=== PATIENT | female | born 1940 | race Caucasian/White ===

== ENCOUNTER → 2023-07-19 11:08 | Outpatient (REF) | payer OTHER, SELFPAY | LOC: HWRAD 11:08 | PROVIDERS: ATTENDING PHYSICIAN Physician Assistant Medical | DX: M79.89 Other specified soft tissue disorders (principal) | CPT/HCPCS: 73140 ==

== ENCOUNTER → 2024-02-27 10:03 | Outpatient (REF) | payer OTHER, SELFPAY | LOC: HWRCS 10:03 | PROVIDERS: ATTENDING PHYSICIAN Internal Medicine Cardiovascular Disease; FAMILY PHYSICIAN Physician Assistant Medical | DX: R94.31 Abnormal electrocardiogram [ECG] [EKG] (principal); R01.1 Cardiac murmur, unspecified | CPT/HCPCS: 93306 ==

== ENCOUNTER → 2024-04-16 09:26 | Outpatient (REF) | payer OTHER, SELFPAY | LOC: HWRAD 09:26 | PROVIDERS: ATTENDING PHYSICIAN Internal Medicine Critical Care Medicine | DX: J84.9 Interstitial pulmonary disease, unspecified (principal) | CPT/HCPCS: 71046 ==

== ENCOUNTER → 2024-05-07 09:19 | Outpatient (REF) | payer OTHER, SELFPAY ==
[2024-05-07 13:05] LABS: Hematocrit 32.8 % (37.0-47.0); Hemoglobin 10.9 g/dL (12.0-16.0); Mean Corp Hgb Conc. 33.2 g/dL (33.0-37.0); Mean Corpuscular Hgb 29.8 pg (27.0-31.0); Mean Corpuscular Volume 89.6 fL (81.0-99.0); Mean Platelet Volume 11.7 fL (7.4-10.4); Platelet Count 464 10^3/uL (130-400); Red Blood Cell Count 3.66 10^6/uL (4.20-5.40); Red Cell Dist. Width 17.7 % (11.5-14.5); White Blood Cell Count 7.6 10^3/uL (4.8-10.8)
[2024-05-07 14:25] LABS: % Basophils 2.2 % (0-2); % Eosinophils 8.4 % (0-6); % Immature Granulocytes 0.4 % (0-0.5); % Lymphocytes 10.4 % (20.5-51.1); % Monocytes 11.4 % (1.7-9.3); % Neutrophils 67.2 % (42.2-75.2); Absolute Basophils 0.2 10^3/uL (0-0.2); Absolute Eosinophils 0.6 10^3/uL (0-0.7); Absolute Lymphocytes 0.8 10^3/uL (1.2-3.4); Absolute Monocytes 0.9 10^3/uL (0.1-0.6); Absolute Neutrophils 5.1 10^3/uL (1.4-6.5); Nucleated Red Blood Cells % 0.4 %
== END ==
LOC: HWLAB 09:19
PROVIDERS: ATTENDING PHYSICIAN Internal Medicine Critical Care Medicine; FAMILY PHYSICIAN Physician Assistant Medical
DX: R06.02 Shortness of breath (principal)
CPT/HCPCS: 36415; 85025

== ENCOUNTER → 2024-06-14 17:01 | Outpatient (REF) | payer OTHER, SELFPAY | LOC: RAD 17:01 | PROVIDERS: ATTENDING PHYSICIAN Physician Assistant Medical | DX: R60.0 Localized edema (principal) | CPT/HCPCS: 93971 ==

== ENCOUNTER → 2024-06-26 10:37 | Outpatient (REF) | payer OTHER, SELFPAY | LOC: HWRAD 10:37 | PROVIDERS: ATTENDING PHYSICIAN Internal Medicine Critical Care Medicine; FAMILY PHYSICIAN Physician Assistant Medical | DX: R06.02 Shortness of breath (principal); R09.89 Other specified symptoms and signs involving the circulatory and respiratory systems | CPT/HCPCS: 71046 ==

== ENCOUNTER 2024-06-29 06:45 | Inpatient (IN) | payer OTHER, SELFPAY ==
[2024-06-29] VITALS (19 sets, daily range): BP systolic 106–161; BP diastolic 36–70; PULSE 2; BMI 29.6; BMI 29.1
--- NOTE | 2024-06-29 04:56 | EDRN ---
Pt was placed on 4 lpm O2 initially, Dr Nazario requested room air pulse ox - pulse dropped to 85%. reapplied 4 lpm O2
--- NOTE | 2024-06-29 05:07 | ED.GENMED ---
History of Present Illness
General
Chief Complaint: Breathing Problem
Source: patient, records and ambulance crew
Exam Limitations: none
Time Seen by Provider: 06/29/24 04:50
Nursing documentation reviewed up to this point in time: agreed with
History of Present Illness
History of Present Illness:
83-year-old female with a past medical history of hypertension, interstitial lung disease (follows with Dr. Aguiar pulmonology) who presents to the emergency room via EMS from home for evaluation of shortness of breath. Patient reports that she
has had worsening shortness of breath over the past 5 days. She says that Monday she went to see commissioner of officials for symptoms and was prescribed prednisone but she has been taking this and symptoms are still worsening. She does have mild cough
occasionally productive of clear sputum. She denies any chest pain. She denies any fever. She has had some swelling in her legs which is new. She denies any other complaints. Per EMS on their arrival she was hypoxic 70s to 80s requiring
nonrebreather. She was given a DuoNeb on the way to the hospital.
Past History
Past History
ED Past Medical History: HTN and Other (anemia, thrombocytosis, diverticulosis)
ED Past Surgical History: Gynecological
Social History
Tobacco: Non-smoker
Alcohol: None
Drug: None
Personal:
Living: with family
Employment: Retired
Family History
Family History: Negative Early CAD
Review of Systems
Review of Systems
All Other Systems: ROS reviewed and negative except as documented in HPI and ROS
Constitutional: Denies fever or chills
Respiratory: Reports cough and trouble breathing
Cardiac: Denies chest pain or palpitations
ABD/GI: Denies abdominal pain, nausea or vomiting
: Denies flank pain
Musculoskeletal: Reports edema; Denies neck pain or back pain
Neurological: Denies dizzy or headache
Phy Exam
Physical Exam
Physical Exam:
General: Awake, alert, oriented x3; in moderate respiratory distress
Head: Normocephalic, atraumatic
Eyes: Conjunctiva normal
Throat: Airway intact, handling secretions
Neck: Trachea midline, no JVD noted
Lungs: Patient is sitting upright, tachypneic, speaking in short sentences; she is breathing with a respiratory rate of 34 and is hypoxic to 85% on room air; she has bilateral rales throughout all lung garzon on lung auscultation
Heart: Tachycardia with regular rhythm, no murmurs, gallops, or rubs
Abd: Soft, non distended, nontender
Neuro: No gross deficits
Extremities: +2 pitting edema in the legs, warm and well-perfused
Scores
Heart Failure Risk
Heart Failure Risk Score: Not Applicable
Heart Score for Chest Pain Patients
STEMI patient?: Not applicable
Withdrawal Assessment of Alcohol
Withdrawal Assessment Completed?: Not applicable
Course
Orders/Labs/Results
Orders:
Orders
06/29/24 04:52
Electrocardiogram (*1) Urgent
Reason for Study: Shortness of Breath
EKG- Treatment ONCE
06/29/24 04:55
COVID-19 Antigen Urgent
Source: Nasal Swab
Complete Blood Count/With Diff Urgent
Comprehensive Metabolic Panel Urgent
NT-proBNP Urgent
Troponin I Urgent
Influenza A+B Rapid Molecular Urgent
UGO Source: Nasal Swab
Specimen Description:
06/29/24 05:06
Bipap [RESP] Urgent
Patient to use own unit?: No
Inspiratory Pressure (cm H2O): 12
Expiratory Pressure (cm H2O): 5
06/29/24 05:07
Ipratropium/Albuterol Sulfate [Duoneb] 3 ml INH R NOW STA
MethylPREDNISolone PF [Solu-Medrol Pf] 125 mg IV NOW STA
CR Chest Portable - 1 View Urgent
Comment:
Reason For Exam: sob
Reason Study Needs to be Portable: Unable to Transport
06/29/24 05:21
Furosemide [Lasix] 40 mg IV NOW STA
06/29/24 05:23
CefTRIAXone [Rocephin] 1,000 mg IV NOW STA
Doxycycline Hyclate [Vibramycin] 100 mg 0.9% Sodium Chloride 250 ml [Nss] 250 ml IV NOW
06/29/24 05:26
Oseltamivir Phosphate [Tamiflu] 75 mg PO NOW STA
Sterile Water [Sterile Water For Injection] 10 ml .ROUTE .[facility]
Abnormal Lab Results
06/29/24
04:55
WBC 14.2 H 10^3/uL
(4.8-10.8)
RBC 2.96 L 10^6/uL
(4.20-5.40)
Hgb 8.6 L g/dL
(12.0-16.0)
Hct 24.9 L %
(37.0-47.0)
RDW 17.7 H %
(11.5-14.5)
Plt Count 432 H 10^3/uL
(130-400)
MPV 11.3 H fL
(7.4-10.4)
06/29/24 04:55
Vital Signs
Initial and Last Documented VS:
Initial Vital Signs
Temp Pulse Resp BP
37.1 C 107 34 160/57
06/29/24 04:48 06/29/24 04:48 06/29/24 04:48 06/29/24 04:48
Last Documented Vital Signs
Temp Pulse Resp BP Pulse Ox
37.2 C 110 28 160/57 96
06/29/24 04:55 06/29/24 05:00 06/29/24 05:00 06/29/24 04:48 06/29/24 05:00
MDM/Problems Addressed
Differential Diagnosis Includes:
ILD, bronchitis, pneumonia, CHF
MDM/Problems Addressed:
83-year-old female presents with worsening shortness of breath x 5 days despite outpatient steroids. Hypoxic, tachypneic, tachycardic, mildly hypertensive. Physical exam as above. Main differentials would be interstitial lung disease versus CHF
based on clinical picture. She did have some subjective improvement with DuoNeb. Will place on BiPAP to stabilize respiratory status. Plan to place an IV check labs including a CBC and a CMP, proBNP and troponin. Swab for COVID and flu. Check
EKG. Check stat portable chest x-ray. Will treat with steroids. Would likely give dose of Lasix as well pending chemistry. Plan for admission pending initial evaluation and resuscitation.
Initial labs reviewed: CBC shows leukocytosis to 14.2�unclear acute clinical significance in the setting of recent steroid use. Chest x-ray reviewed by me and compared to x-ray from 3 days ago shows increased interstitial infiltrates�could be
interstitial pneumonia versus increased interstitial lung disease versus CHF. She was noted to have positive swab for influenza A�this could be viral pneumonia. Although she is almost a week into her illness given the acuity of illness we will
cover with Tamiflu. Will treat with steroids and nebs for possible interstitial lung disease component of her symptoms. Will give a dose of Lasix given increased edema. Hold on antibiotics at this point with no fever/hypotension and more likely
alternative causes for her abnormal x-ray and hypoxia. Will admit to the hospitalist for continued management. Case discussed with hospitalist.
Patient showed me a note from her commissioner of officials�apparently she is also had increased weight gain by about 8 pounds on top of her no edema and there was a question of some pulmonary edema outpatient x-ray; all this supports continued treatment with
diuretic in addition to above.
Chronic conditions affecting care:
Interstitial lung disease
Acute Exacerbation and/or Progression of Chronic Illness:
Acutely hypertensive
Acute Exacerbation and/or Progression of Chronic Illness: HTN
*Radiology
Radiology exam reviewed: preliminary read by ED provider
*Pulse Oximetry
Patient hypoxic: yes
*EKG
Interpreted by ED Provider?: Yes
Heart Rate: 103
Rate: tachycardiac
Rhythm: sinus and sinus tachycardia
[place]: normal axis
Interval: normal interval
QRS Pattern: normal QRS
Ischemia: non-specific ST changes
*Critical Care Note
Total Time (30-74mins, 75-104mins- exclusive of procedures): 30
comment:
Critical care statement: A total of 30 minutes of critical care time was provided for this patient. This includes management of unstable vital signs, evaluation of the patient at bedside, frequent reassessment, discussion with
consultants/hospitalist, and review of pertinent medical records. This time was separate from time utilized to perform any aforementioned documented procedures
Data Reviewed
Source: patient, records and ambulance crew
Patient Management
Discussion with other providers: Hospitalist (Discussed with hospitalist)
Escalation/DeEscalation of care consider admission/obs:
Admission indicated
ED Attending Note
-
Portions of this chart may have been created with voice recognition software.� Occasional wrong word or��sound alike� substitutions may have occurred due to the inherent limitations of voice recognition software.
Discharge Plan
Departure
Patient Disposition: Admit
Date of Disposition: 06/29/24
Time of Disposition: 05:30
Admit to doctor: Lucia
Presentation/result/management discussed w/ accepting MD/DO: Hospitalist
Discharge Problem:
Acute hypoxemic respiratory failure, Interstitial lung disease, CHF (congestive heart failure), Influenza A
Prescriptions:
No Action
cholecalciferol (vitamin D3) 1,000 UNITS tablet
1,000 units PO DAILY
calcium-vitamin D3-vitamin K 1 EACH tablet,chewable
1 ea PO DAILY
multivitamin with folic acid [Tab-A-Levi] 1 TABLET tablet
1 tab PO DAILY
albuterol sulfate 1 PUFF HFA aerosol inhaler
1 puff inhalation R Q4HPRN PRN (Reason: sob) 30 Days Qty: 1 0RF
prednisone 20 mg Tablet
20 mg PO DAILY
spironolactone
1 tab PO DAILY
Patient Comments:
this medication is new - pt does not know how much she takes
Interventions
Interventions:
*Risk Screen - Suicide Last Done: 06/29/24 04:48
*General Assessment Last Done: 06/29/24 04:48
*Neglect/Abuse Screening Last Done: 06/29/24 04:48
ED- Fall Risk Assessment Last Done: 06/29/24 04:58
*ED COVID-19 Vaccine History Last Done: 06/29/24 04:48
ED- Cardiac Assessment Last Done: 06/29/24 05:05
ED- Pulmonary Assessment Last Done: 06/29/24 05:05
Discharge Date and Time
Print Language: ROMANIAN
[2024-06-29] MEDS: DUONEB 3 ML INH (05:14)
[2024-06-29] MEDS: SOLU-MEDROL PF 125 MG IV (05:14)
[2024-06-29 05:17] LABS: Hematocrit 24.9 % (37.0-47.0); Hemoglobin 8.6 g/dL (12.0-16.0); Mean Corp Hgb Conc. 34.5 g/dL (33.0-37.0); Mean Corpuscular Hgb 29.1 pg (27.0-31.0); Mean Corpuscular Volume 84.1 fL (81.0-99.0); Mean Platelet Volume 11.3 fL (7.4-10.4); Platelet Count 432 10^3/uL (130-400); Red Blood Cell Count 2.96 10^6/uL (4.20-5.40); Red Cell Dist. Width 17.7 % (11.5-14.5); White Blood Cell Count 14.2 10^3/uL (4.8-10.8)
[2024-06-29 05:20] LABS: COVID-19 Antigen Negative (Negative)
[2024-06-29] MEDS: LASIX 40 MG IV ×2 (05:31→16:43)
[2024-06-29] MEDS: TAMIFLU 75 MG PO ×2 (05:31→19:50)
[2024-06-29 05:34] LABS: NT-proBNP 7340 pg/ml; Troponin I 0.017 ng/ml
--- NOTE | 2024-06-29 06:01 | HPS.HSE ---
Family Physician
-
Family Physician: BETZY CUMMINGS PA-C
Chief Complaint
-
Shortness of breath
History of Present Illness
This 83-year-old female was a past medical history of interstitial lung disease not currently on home O2, history of CHF with preserved EF presents to the emergency department with worsening shortness of breath over the last 6 days.
Patient and spouse reported that there was a family gathering about a week ago prior to the patient getting sick. The following day the patient started having more of a runny nose (she has chronic rhinorrhea). She felt more short of breath and was
seen by our physician/[employer]. A chest x-ray at that time was concerning for increased pulmonary edema with some peribronchial cuffing with concern for bronchiolitis versus edema. She also had increased ankle edema as well as 8 pound weight
gain over 2 months. There was a recommendation that Lasix and if there was no improvement she she will be started on prednisone. Ultimately about 3 days ago the patient said that she started taking prednisone. She took 60 mg (was supposed to have
taken 20 mg) on Monday and then went down to the 20 mg last 2 days. On she started taking Lasix 20 mg IV twice daily. She was continued on spironolactone. Patient reports no significant improvement in respiratory symptoms. She denied
any increased urine output. She had worsening shortness of breath on Monday and EMS was called. Initial pulse ox was 88% on room air with severe increased work of breathing. EMS placed her on nonrebreather are symptoms with subjectively improved.
In the emergency department she was afebrile with a temp of 98.9, blood pressure was 160/60 with a pulse of 110 respiratory rate was 28-30. She was satting around 96% on 5 L and on BiPAP 8/5. ECG shows sinus tachycardia at 103. Troponin was
negative. BNP was elevated at 7300. Chest x-ray shows interstitial opacities and groundglass opacities is throughout the lung garzon without focal consolidation consistent with interstitial pneumonia, worsening ILD versus pulmonary edema.
Influenza test was positive. COVID test was negative. CBC shows a white count of 14,000 with hemoglobin and platelet counts unchanged from prior. Electrolytes are pending.
Medical History
Past Medical History
Past Medical History: Reports HTN and Other (Diverticulosis)
Additional Past Medical History:
Interstitial lung disease
Past Surgical History: Reports Appendectomy, and Gynocological (Total hysterectomy)
Social History
Tobacco: Non-smoker
Alcohol: None
Drug: None
Personal:
Living: With Family
Employment: Retired
Family History
Family History: Not pertinent
Allergies / Home Medications
Allergies reflects when Allergies were last updated in [employer].
Home Medications with original date entered in [employer]
Allergy/Medication List:
Allergies
Allergy/AdvReac Type Severity Reaction Status Date / Time
aspirin Allergy Unknown Verified 06/29/24 04:47
clarithromycin [From Biaxin] Allergy Unknown Verified 06/29/24 04:47
Home Medications
calcium 500 mg-vitamin D3 500 unit-vitamin K 40 mcg chewable tablet 1 ea PO DAILY Supplement 12/28/19
cholecalciferol (vitamin D3) 25 mcg (1,000 unit) tablet 1,000 units PO DAILY Supplement 12/28/19
multivitamin with folic acid 400 mcg tablet (Tab-A-Levi) 1 tab PO DAILY Supplement 12/28/19
albuterol sulfate 90 mcg/actuation aerosol inhaler 1 puff inhalation R Q4HPRN PRN sob 30 days ##1 01/02/20
prednisone 20 mg tablet 20 mg PO DAILY 06/29/24
spironolactone 1 tab PO DAILY 06/29/24
Review of Systems
-
History Source: Patient and Family
Constitutional: Reports No Symptoms
EENT: Reports No Symptoms
Respiratory: Reports Cough and Trouble Breathing
Cardiac: Reports No Symptoms
Abdomen/GI: Reports No Symptoms
: Reports No Symptoms
Musculoskeletal: Reports Edema
Skin: Reports No Symptoms
Neurological: Reports No Symptoms
Endocrine: Reports No Symptoms
Hematologic/Lymphatic: Reports No Symptoms
Psych: Reports No Symptoms
Physical Exam
Vital Signs
Vital Signs
Temp Pulse Resp BP Pulse Ox
98.9 F 110 37 154/55 94
06/29/24 04:55 06/29/24 05:33 06/29/24 05:33 06/29/24 05:33 06/29/24 05:33
Physical Exam
General: Respiratory Distress
HEENT: NormoCephalic, Anicteric, Moist mucous membranes and Atraumatic
Respiratory: Wheezes, Crackles and Accessory Resp Muscle Use
Cardiac: S1/S2 and Tachycardia
Breast: Deferred by me
GI: Soft, Non Tender, Non Distended and Normal Bowel Sounds
Rectal: Deferred by Provider
Genito-urinary: Deferred by me
Musculoskeletal: No Clubbing, No Cyanosis and No Edema
Skin: Warm
Neuro: AO x 3 and Nonfocal/grossly intact
Hematologic/Lymphatic: No Lymphadenopathy
Psych: Calm
Laboratory Results
-
06/29/24 04:55
Laboratory Results
Total Bilirubin Cancelled 06/29/24 04:55
AST Cancelled 06/29/24 04:55
ALT Cancelled 06/29/24 04:55
Alkaline Phosphatase Cancelled 06/29/24 04:55
Troponin I 0.017 ng/ml 06/29/24 04:55
Data Reviewed
-
Diagnostic Radiology: Image Personally Visualized and interpreted
Medical Tests (Nuc Med, Echo, EKG etc): Image Personally Visualized and interpreted
Lab Data: Labs Reviewed by me
Old Records: Reviewed
Impression/Plan
-
IMPRESSION:
83 y.o with h/o ILD not requiring O2 at home (chronic inhaled steroids) presenting with 5 days of worsening SOB despite trial of lasix and prednisone at home. Was seen in clinic 3 days ago with concern for weight gain, peripheral edema and
pulmonary edema and intiated on the treatments aforementioned with recommendations to go to ED if no improvements. Found to be in hypoxic respiratory distress in ED. Influenza A positive. Evaluation suggestive of multifactorial etiology.
PLAN:
1. Hypoxic respiratory distress - Influenza A positive. No focal consolidation, fevers or chills. Recent gathering but no clear sick contact. Picture complicated by ILD. WOB has improved on bipap and patient satting 98%.
- admit to IMU
- continue bipap / with goal sat > 95%
- check procalcitonin, if positive start empiric ceftriaxone/doxy
- tamiflu treatment d,
- iv solu-medrol 40 q 12 for presumed ILD exacerbation
- pulmonary consult.
2. CHF - EF 55% several years ago with PASP of 44. No known valvular disease at the time. Now has weight gain, peripheral edema and more interstial markings w/ shaila-bronchial cuffing concerning for pulm edema versus worsening pulm htn. BNP > 7000.
- continue IV lasix 40mg q 12, hold for hypotension or ALBERT
- spironolactone 25 daily
- echo
- cardiology consult
3. Hyponatremia - Na down to 126, usually around 130. Likely chronic siadh exacerbated by CHF.
- given concern for chf, will fluid restrict for now
- diuretics as above
- repeat Na in 6 hours
- urine studies
- nephrology consult
4. Anemia - Chronic anemia, slightly more anemic compared to prior. No evidence of blood loss, ,suspect ACD.
- iron, sat, b12, folate
- no indication for transfusion
DVT PPX - heparin sq
Code status - Do not intubate
[2024-06-29 06:29] LABS: ALT (SGPT) 20 U/L (0-35); AST (SGOT) 31 U/L (14-36); Albumin 4.1 g/dl (3.5-5.0); Alkaline Phosphatase 102 U/L (38-126); Blood Urea Nitrogen 17 mg/dl (7-17); Calcium 9.1 mg/dl (8.4-10.2); Carbon Dioxide 25 mmol/L (22-30); Chloride 91 mmol/L (98-107); Estimated Creatinine Clearance 61 ml/min; Glucose 108 mg/dl (70-99); Potassium 4.1 mmol/L (3.5-5.1); Sodium 126 mmol/L (135-145); Total Bilirubin 0.8 mg/dl (0.2-1.3); Total Protein 7.1 g/dl (6.3-8.2); eGFR > 60.00
[2024-06-29 06:32] LABS: Absolute Neutrophils -Man Diff 11.9 10^3/uL (1.4-6.5); Anisocytosis 1+; Band Neutrophils 24 % (0-3); Lymphocytes 5 % (20-51); Monocytes 11 % (2-9); Normal RBC Morphology No; Segmented Neutrophils 60 % (42-75); Total Cells Counted 100
[2024-06-29 06:35] LABS: Ovalocytes 1+; Target Cells Occasional; Tear Drop Red Blood Cells Occasional; Toxic Granulation 1+
[2024-06-29 06:36] LABS: Acanthocytes 1+; Basophilic Stippling Occasional; Polychromasia Occasional
[2024-06-29 06:41] LABS: Platelets Checked Yes; Poikilocytosis 1+; Schistocytes Occasional
[2024-06-29 07:15] LABS: Procalcitonin 0.07 ng/ml (0.0-0.25)
[2024-06-29] MEDS: TYLENOL 650 MG PO (08:47)
--- NOTE | 2024-06-29 09:21 | CON.PUL ---
Consultation
Consultation Request
Date/Time Consultation Requested: 06/29/2024 - 811
Date/Time Consultation Performed: 06/29/2024919
Requesting Provider: Dr. Myers
Performing Provider: Dr. Myers
Reason for Consultation: SOB/hypoxia; dyspnea on BiPAP
Medical History
-
Chief Complaint: Worsening SOB
History of Present Illness:
83-year-old female with a history of ILD on CellCept, GERD, pulmonary hypertension, ANDRE, hypertension, and history of pneumonia who presented with worsening SOB. She says that her shortness of breath has been happening for a few days and she called
our pulmonary office on 06/27/2024 saying she had a bad night with worsening shortness of breath, and we started her on steroids (06/27/2024). She says she took 'too much' of the steroids on . She currently prescribed dose on Monday. Per
the medic, her room air pulse oximetry was 88%. After nebulizer treatment her pulse ox yosvany to 99% and she felt better. Patient reports today she had a family gathering about a week ago. In the ER she was afebrile to 98.7 �F, pulse rate 107,
breathing at 34 breaths/min, BP 160/57 and saturating 85% on room air, which improved to 96% on 4 L/min. Labs showed WBC 14.2, Hb 8.6, platelet count 432, 24% bands, sodium 126, chloride 91, troponin negative at 0.017, proBNP elevated at 7340,
procalcitonin negative at 0.07, and COVID antigen negative. Flu swab was positive for influenza A. Imaging showed moderate patchy and confluent interstitial and airspace opacities with suspected pneumonia versus pulmonary edema. In the ER she was
given 40 mg Lasix, DuoNebs, Solu-Medrol 125 mg and Tamiflu. Due to hypoxia with increased work of breathing, she was started on BiPAP and admitted to the IMU and pulmonary service consulted for additional management/recommendations.
When I saw the patient she was already taken off BiPAP and placed onto 3 L/min nasal cannula. She says she does not use oxygen at home. She is currently breathing comfortably. She currently denies shortness of breath, although has a cough which
is mostly dry. Currently, heart rate 70, BP 110/36 and saturating 94%. She denies ELAM, chest pain, abdominal pain, nausea, fevers or chills.
Of note patient follows with us in the office with Dr. Aguiar. Last visit was on 06/26/2024 with HARLEY Lozano. She previously was on nocturnal oxygen but this was stopped as she was not using it. She is on CellCept and was on prednisone 5
mg 3 times a week. Also has chronic bronchitis although had a rare cough at this last office visit. She uses Pulmicort 1�2 times a day. She was asked to follow-up in 2 weeks for follow-up visit. Her last full PFT was in September 2020 showing no
evidence of obstruction, no restriction, and a moderately reduced gas exchange capacity (DLco: 42%, DLco/VA: 62%).
PMHx: GERD, ILD on CellCept, pulmonary hypertension, iron deficiency anemia, hypertension, history of pneumonia, diverticulosis
PSHx: x 2, total hysterectomy, appendectomy
Past Medical History
Past Medical History: Other (Above as per HPI)
Past Surgical History: Other (Above as per HPI)
Social History
Tobacco: Non-smoker
Alcohol: None
Drug: None
Family History
Family History: Reviewed & Not Pertinent
Allergies / Home Medications
Allergies
Allergy/AdvReac Type Severity Reaction Status Date / Time
aspirin Allergy Unknown Verified 06/29/24 04:47
clarithromycin [From Biaxin] Allergy Unknown Verified 06/29/24 04:47
Home Medications
�Medication �Instructions �Recorded �Confirmed �Last Taken �Type
calcium 500 mg-vitamin D3 500 1 ea PO DAILY Supplement 12/28/19 06/29/24 12/27/19 History
unit-vitamin K 40 mcg chewable
tablet
cholecalciferol (vitamin D3) 25 1,000 units PO DAILY Supplement 12/28/19 06/29/24 12/27/19 History
mcg (1,000 unit) tablet
multivitamin with folic acid 400 1 tab PO DAILY Supplement 12/28/19 06/29/24 12/28/19 History
mcg tablet (Tab-A-Levi)
albuterol sulfate 90 mcg/actuation 1 puff inhalation R Q4HPRN PRN sob 01/02/20 06/29/24 Unknown Rx
aerosol inhaler 30 days ##1
prednisone 20 mg tablet 20 mg PO DAILY 06/29/24 06/29/24 Unknown History
spironolactone 1 tab PO DAILY 06/29/24 06/29/24 Unknown History
Review of Systems
-
History Source: Patient
All other systems: Negative unless noted
Vitals / Labs / Diagnostic Testing
Vital Signs
Temp Pulse Resp BP Pulse Ox
101.5 F H 89 19 124/43 95
06/29/24 08:55 06/29/24 09:00 06/29/24 09:00 06/29/24 09:00 06/29/24 09:00
Lab Data
06/29/24 04:55
Microbiology
06/29/24 04:55 Nasal Swab Influenza Types A & B (DARRYN) - Final
Influenza A Positive, NAAT
Diagnostic Testing:
Physical Exam
-
HEENT: Normocephalic and Anicteric
Cardiovascular: S1/S2, Rub (negative) and Peripheral Edema (+1 lower extremity edema bilaterally)
Respiratory: Wheeze ([place] upon expiration bilaterally), Rales (bibasilar), Rhonchi (negative), Non-Labored Respirations and Other (Occasional inspiratory squeaks heard bilaterally)
GI: Soft, Non Distended, Non Tender and Normal Bowel Sounds
Neurology: AO x 3 and Tremors (negative)
Skin: Warm and Dry
General: Respiratory Distress (negative), Comfortable, Fever (negative) and Chills (negative)
Assessment
-
Assessment: 83-year-old female with a history of ILD on CellCept, GERD, pulmonary hypertension, ANDRE, hypertension, and history of pneumonia who presented with worsening SOB. She says that her shortness of breath has been happening for a few days
and she called our pulmonary office on 06/27/2024 saying she had a bad night with worsening shortness of breath, and we started her on steroids (06/27/2024). She says she took 'too much' of the steroids on . She currently prescribed dose on
Monday. Per the medic, her room air pulse oximetry was 88%. After nebulizer treatment her pulse ox yosvany to 99% and she felt better. Patient reports today she had a family gathering about a week ago. In the ER she was afebrile to 98.7 �F, pulse
rate 107, breathing at 34 breaths/min, BP 160/57 and saturating 85% on room air, which improved to 96% on 4 L/min. Labs showed WBC 14.2, Hb 8.6, platelet count 432, 24% bands, sodium 126, chloride 91, troponin negative at 0.017, proBNP elevated at
7340, procalcitonin negative at 0.07, and COVID antigen negative. Flu swab was positive for influenza A. Imaging showed moderate patchy and confluent interstitial and airspace opacities with suspected pneumonia versus pulmonary edema. In the ER
she was given 40 mg Lasix, DuoNebs, Solu-Medrol 125 mg and Tamiflu. Due to hypoxia with increased work of breathing, she was started on BiPAP and admitted to the IMU and pulmonary service consulted for additional management/recommendations.
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
Impression:
#Acute respiratory failure with hypoxia on supplemental oxygen due to influenza A pneumonia and interstitial edema
#Acute HFpEF exacerbation
#Leukocytosis with bandemia
#Hypochloremic, hyponatremia likely due to reduced PO intake
#Elevated proBNP suspicious for acute decompensated heart failure
#Acute on chronic anemia (baseline Hb 10-11 g/dL)
#Chronic thrombocytosis
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
#History of pulmonary hypertension (moderately elevated PASP)
#GERD
#Hypertension
Plan:
- Patient has markedly improved since being hospitalized and is now off of BiPAP and on nasal cannula and breathing comfortably
- Maintain SpO2 >90-94% with supplemental O2 and wean down as tolerated
- She will need a walking pulse oximetry prior to discharge
- Patient found to be flu A on nasal swab this morning
- CXR from today (06/29/2024) shows bilateral interstitial/airspace opacities. Given that her procalcitonin is negative at 0.07, CXR abnormalities likely due to viral pneumonia
- Hold off on antibiotics for now and continue to observe while trending WBC and monitoring her fever curve
- Continue tamiflu x 5 days
- Continue systemic steroids and wean as she clinically improves - currently on solumedrol 40mg IV q12hr
- Nebulized albuterol QID with prn Duonebs
- Would resume her cellcept assuming she remains afebrile by tomorrow with no concern for a bacterial infection; check UA with reflex to culture
- Given that her proBNP is elevated and there is bilateral interstitial opacities with concern for interstitial edema, continue with IV diuresis
- Currently on Lasix 40 mg IV BID
- Maintain net negative fluid balance as tolerated while trending UOP, sNa and sCr
- Repeat echo;last TTE from 02/27/2024 showed normal biventricular size & function with moderately elevated PASP to 40-45 mmHg w/no significant change compared to prior echo from 2021
- Incentive spirometer q1hr while awake
- Replete electrolytes with K>4, Mg>2
- Maintain euglycemia with goal BG >100 and <180
- Transfuse PRBC as needed to keep Hb >7g/dL
- Up OOB as tolerated
- PT/OT
- DVT ppx: HSQ
Pulmonary service will continue to follow along. Ultimately patient will follow-up with us in the office as she usually sees Dr. Aguiar. Last visit was on 06/26/2024 with HARLEY Lozano.
Data:
CXR 06/29/2024: Progressive parenchymal opacity, probable pneumonia. Cannot exclude pulmonary edema in the proper clinical setting, though the heart remains stable, top normal in size.
Total time spent today was 56 minutes for this encounter. Time includes reviewing laboratory test/imaging results, reviewing pertinent medical records, obtaining and reviewing medical history, performing an appropriate exam, ordering medications,
tests and procedures. Time also includes documentation of this encounter, coordinating patient care and communicating with other healthcare professionals. Total time does not include separately billed tests performed on this date of service.
--- NOTE | 2024-06-29 10:18 | W.PN.HOSP.TC ---
Today's Communication/Plan
-
wean O2 as tolerated
cont scheduled Neb therapy
steroids
Pulm Cardio Nephro Eval
monitor Na
Assessment / Plan
Assessment / Plan
Physical Exam
General: No acute distress appears comfortable at this time.
HEENT: NormoCephalic, Anicteric, Moist mucous membranes and Atraumatic
Respiratory: Basilar crackles b/l on nasal cannula supplementation non-labored respiration
Cardiac: S1/S2 and Tachycardia
GI: Soft, Non Tender, Non Distended and Normal Bowel Sounds
Musculoskeletal: No Clubbing, No Cyanosis and No Edema
Skin: Warm
Neuro: AO x 3
Psych: Calm
83F ILD HFpEF here for Flu acute on chronic HFpEF w/ associate hyponatremia
#Acute Hypoxic respiratory distress/failure - Influenza A positive
#ILD
- IMU
- wean O2 supplementation as tolerated
- neg procal, no need for abx at this time
- Tamiflu
- iv solu-medrol 40 q 12 for presumed ILD exacerbation
-cont home ICS
-cont home mycophenolate
- pulmonary consult
# HFpEF - EF 55% several years ago with PASP of 44. No known valvular disease at the time. Now has weight gain, peripheral edema and more interstitial markings w/ shaila-bronchial cuffing concerning for pulm edema versus worsening pulm htn. BNP >
7000.
- continue IV lasix 40mg q 12
- hold home spironolactone 12.5 daily as per Nephro
- cardiology consult appreciated
# Hyponatremia - Na down to 126, usually around 130. 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
- Fluid restriction diuretics as above
- monitor Na
- nephrology consult appreciated hold home spironolactone
#Chronic Anemia
monitor H&H
no need for transfusion at this time
DVT PPX - heparin sq
Code status - Do not intubate
I spent a total of 50 minutes with the patient or on the floor. More than 50% of this time involved counseling and coordination of care.
Anticipated Discharge: 24 - 48 hours
Subjective/Interval History
-
Date of Service: June 29, 2024
Seen and examined at bedside in no acute distress sitting up comfortably in bed. Reports improvement in symptoms since admission/start of treatment. Remains on nasal cannula supplementation 4L (Baseline room air).
Objective Data
-
Labs:
Laboratory Results
06/29/24 06/29/24 06/29/24
04:55 05:57 11:30
WBC 14.2 H
Hgb 8.6 L
Hct 24.9 L
Plt Count 432 H
Sodium Cancelled 126 L Pending
Potassium Cancelled 4.1 Pending
Chloride Cancelled 91 L Pending
Carbon Dioxide Cancelled 25 Pending
BUN Cancelled 17 Pending
Creatinine Cancelled 0.6 Pending
Glucose Cancelled 108 H Pending
Calcium Cancelled 9.1 Pending
Total Bilirubin Cancelled 0.8
AST Cancelled 31
ALT Cancelled 20
Alkaline Phosphatase Cancelled 102
Vital Signs:
Vital Signs
Temp Pulse Resp BP Pulse Ox
101.5 F H 89 19 124/43 95
06/29/24 08:55 06/29/24 09:00 06/29/24 09:00 06/29/24 09:00 06/29/24 09:00
[2024-06-29] MEDS: VENTOLIN NEBULES INH (10:44)
[2024-06-29] MEDS: VENTOLIN NEBULES 2.5 MG INH ×3 (10:45→20:15)
--- NOTE | 2024-06-29 11:13 | CON.CAR ---
Addendum entered and electronically signed by Melquiades Lemons MD 06/30/24 09:31:
Adding medical exam that was done June 29, 2024
Fatigued appearing but not in acute distress awake and alert oriented x 3
Rales bilaterally at the bases without wheezes or rubs.
Regular and tachycardic with grade 1/6 apical holosystolic murmur no rub
Abdomen soft nontender nondistended with normoactive bowel sounds
Extremities +1 pretibial pitting edema
Neurologic exam is grossly nonfocal
Skin is without rashes
Addendum entered and electronically signed by Melquiades Lemons MD 06/29/24 16:51:
assessment and recommendations:
Acute HFpEF
proBNP greater than 7000
-Agree with IV diuresis with Lasix 40 mg IV twice daily with daily weights, I/O, keep potassium between 4 and 5 and magnesium between 2 and 3
-Continue spironolactone
-Could consider repeat echo if symptoms do not improve with treatment of flu/pneumonia and with diuresis, but not needed at this point
Has known chronic lower extremity edema and had been managed with oral Lasix and spironolactone which was recently changed from oral Lasix and HCTZ
-Rec compression stockings for history of chronic lower extremity edema
Hypoxia in setting of underlying interstitial lung disease and now influenza A as well as some component of volume overload from heart failure with preserved ejection fraction
- diuresing with IV Lasix
- further management as per primary service regarding interstitial lung disease and likely influenza A pneumonia
Hypertension-
BPs 110s- 120s/40s
- continue spironolactone
Original Note:
Consultation
Consultation Request
Date/Time Consultation Requested: 06/29/2024 0812
Date/Time Consultation Performed: 06/29/2024 1115
Requesting Provider: Dr Gerber Myers
Performing Provider: HARLEY Ruano for Dr Melquiades Lemons
Reason for Consultation: heart failure
Medical History
-
Chief Complaint: shortness of breath
History of Present Illness:
83-year-old female with history of hypertension, interstitial lung disease, chronic lower extremity edema, history of murmur since childhood, echo 02/2024 showed mild TR. Recently seen in our office by Dr Frederick 02/2024 as new patient. Previously
followed by Dr. Palomo at [facility]. Lower extremity edema managed with Lasix and HCTZ. Prior to admission she had gained 8 pounds in 2 months and called our office last week. She was instructed to stop HCTZ and start spironolactone 12.5 mg daily,
take extra dose of Lasix 20 mg x 3 days..
She presented to ED early this morning with continued worsening shortness of breath and lower extremity edema. She had been in a family gathering about a week ago and the following day started having cold-like symptoms. She was seen by pulmonary
(follows with Dr. Levy for her interstitial lung disease) and there was concern for increased pulmonary edema on chest x-ray with concern for bronchiolitis versus edema. Outpatient Lasix was uptitrated with no improvement in symptoms. EMS
was called 06/28/2024, initial pulse ox was 88% with severe work of breathing. She was placed on nonrebreather.
ED evaluation: BNP 7300, troponin negative, influenza A positive, COVID-negative, WBC 14K.
EKG: Sinus tachycardia 103 bpm
Chest x-ray interstitial opacities and groundglass opacities throughout lung garzon without focal consolidation consistent with interstitial pneumonia, worsening ILD versus pulmonary edema
Past medical history:
Hypertension
Interstitial lung disease
Chronic lower extremity edema
Mild tricuspid regurgitation
Pneumonia
Diverticulosis
Past Medical History
Past Medical History: Other (As above)
Past Surgical History: Appendectomy and Gynecological (, hysterectomy)
Social History
Tobacco: Former Smoker
Alcohol: None
Family History
Family History: Reviewed & Not Pertinent
Allergies / Home Medications
Allergy/AdvReac Type Severity Reaction Status Date / Time
aspirin Allergy Unknown Verified 06/29/24 04:47
clarithromycin [From Biaxin] Allergy Unknown Verified 06/29/24 04:47
�Medication �Instructions �Recorded �Confirmed �Type
calcium 500 mg-vitamin D3 500 1 ea PO DAILY Supplement 12/28/19 06/29/24 History
unit-vitamin K 40 mcg chewable
tablet
cholecalciferol (vitamin D3) 25 1,000 units PO DAILY Supplement 12/28/19 06/29/24 History
mcg (1,000 unit) tablet
multivitamin with folic acid 400 1 tab PO DAILY Supplement 12/28/19 06/29/24 History
mcg tablet (Tab-A-Levi)
albuterol sulfate 90 mcg/actuation 1 puff inhalation R Q4HPRN PRN sob 01/02/20 06/29/24 Rx
aerosol inhaler 30 days ##1
prednisone 20 mg tablet 20 mg PO DAILY 06/29/24 06/29/24 History
spironolactone 1 tab PO DAILY 06/29/24 06/29/24 History
Review of Systems
-
History Source: Patient
All other systems: Negative unless noted
Physical Exam
Vital Signs
Temp Pulse Resp BP Pulse Ox
101.5 F H 89 18 124/43 97
06/29/24 08:55 06/29/24 09:00 06/29/24 10:49 06/29/24 09:00 06/29/24 10:49
Lab Results
06/29/24 04:55
Troponin I 0.017 ng/ml 06/29/24 04:55
Gqc-[id number] Pept 7340 pg/ml 06/29/24 04:55
GEN: No distress, awake, Ox3
HEENT: supple, anicteric, mmm
LUNGS: CTA, Rales bilateral bases
CV: Reg, Tachy, no murmur rub or gallop
ABD: soft, BS+, NT/ND
EXT: 1+ pitting edema to knees
NEURO: Gross non-focal
SKIN: No rash
Impression / Plan
-
PCP: Aiden Hopkins
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
Impression:
Acute hypoxic respiratory distress
Influenza A positive
Acute heart failure preserved EF
Interstitial lung disease
Chronic lower extremity edema
Hyponatremia
Previous cardiovascular testing:
Echo 02/27/2024: Normal LV size, wall thickness, systolic function, EF 55 to 60%, no wall motion abnormalities, normal RV size and function, mild TR, PA P 40 to 45 mmHg
Plan:
83-year-old female with history of hypertension, interstitial lung disease, chronic lower extremity edema, normal LV function, with recent 8 pound weight gain over 2 months, increasing shortness of breath and lower extremity edema over the past
week. Outpatient diuretics adjusted and uptitrated with no improvement in symptoms. Presented to ED 06/28/2024 and influenza A positive. proBNP elevated at 7300. Chest x-ray concerning for pneumonia cannot exclude pulmonary edema.
COVID-negative.
1.Acute heart failure preserved EF-
-proBNP greater than 7000
-Agree with IV diuresis with Lasix 40 mg IV twice daily
-Continue spironolactone
-Could consider repeat echo if symptoms do not improve with treatment of flu/pneumonia and with diuresis
-Daily weights
- I/O
-Has known chronic lower extremity edema and had been managed with oral Lasix and spironolactone which was recently changed from oral Lasix and HCTZ
-Can eventually consider compression stockings for history of chronic lower extremity edema
-Daily BMP and mag on IV diuretics
2.Hypoxia in setting of underlying interstitial lung disease and now influenza A
- on O2
-Breathing currently seems comfortable
-Treatment per primary team and pulmonary
3. Hypertension-
-BPs acceptable in 110s- 120s/40s
Meg presented to ED early this morning with continued worsening shortness of breath and lower extremity edema. She had been in a family gathering about a week ago and the following day started having cold-like symptoms. She was seen by pulmonary
(follows with Dr. Levy for her interstitial lung disease) and there was concern for increased pulmonary edema on chest x-ray with concern for bronchiolitis versus edema. Outpatient Lasix was uptitrated with no improvement in symptoms. EMS
was called 06/28/2024, initial pulse ox was 88% with severe work of breathing. She was placed on nonrebreather.
ED evaluation: BNP 7300, troponin negative, influenza A positive, COVID-negative, WBC 14K.
EKG: Sinus tachycardia 103 bpm
[2024-06-29] MEDS: HEPARIN 5000 UNITS SC ×2 (11:31→16:42)
[2024-06-29 12:08] LABS: Blood Urea Nitrogen 18 mg/dl (7-17); Calcium 8.2 mg/dl (8.4-10.2); Carbon Dioxide 25 mmol/L (22-30); Chloride 89 mmol/L (98-107); Estimated Creatinine Clearance 61 ml/min; Glucose 139 mg/dl (70-99); Potassium 4.3 mmol/L (3.5-5.1); Sodium 123 mmol/L (135-145); eGFR > 60.00
--- NOTE | 2024-06-29 12:19 | RESPNOTE ---
patient seen 1 hour off bipap. RR20, SpO2 89-92% on 4L O2, equal, non-labored respirations.
--- NOTE | 2024-06-29 13:10 | PTCARENOTE ---
Pt arrived to floor from ED on stretcher. Pulled over to bed; SpO2 ~ 95% on 4L O2 via NC; NSR with PAC's on monitor, + Murmur; Pt Orthopneic and tachypneic; Denies pain; Oriented to room, call harris within reach. Will continue to monitor and
assess.
[2024-06-29] MEDS: SOLU-MEDROL PF 40 MG IV (17:09)
--- NOTE | 2024-06-29 18:28 | W.CON.NEPH ---
Consultation
-
Date/Time Consultation Requested: June 29, 2024 at 8 AM
Date/Time Consultation Performed: June 29, 2024 at 5 PM
Requesting Provider: Dr. almanza
Performing Provider: Dr. Jc Casper
Reason for Consultation: hyponatremia
Medical History
-
Chief Complaint: shortness of breath and hyponatremia
History of Present Illness:
83-year-old female was a past medical history of interstitial lung disease not currently on home O2, history of CHF with preserved EF presents to the emergency department with worsening shortness of breath over the last 6 days.
renal consul was place for hyponatremia of 126 on admission it decreased down to 123.
Patient diagnosed with influenza.
Of note she was on hydrochlorothiazide until Monday of this week one was changed to Aldactone.
Medical nurse did a bladder scan showed over 700.
Past Medical History
Interstitial lung disease, hypertension, hyponatremia, anemia
Social History
Tobacco: Non-Smoker
Alcohol: None
Drug: None
Family History
Family History: Not Pertinent
Allergies / Home Medications
Allergy/AdvReac Type Severity Reaction Status Date / Time
aspirin Allergy Unknown Verified 06/29/24 04:47
clarithromycin [From Biaxin] Allergy Unknown Verified 06/29/24 04:47
�Medication �Instructions �Recorded �Confirmed �Type
cholecalciferol (vitamin D3) 25 1,000 units PO NOON Supplement 12/28/19 06/29/24 History
mcg (1,000 unit) tablet
albuterol sulfate 90 mcg/actuation 1 puff inhalation R Q4HPRN PRN sob 01/02/20 06/29/24 Rx
aerosol inhaler 30 days ##1
alendronate 70 mg tablet 70 mg PO FR 06/29/24 06/29/24 History
budesonide 0.5 mg/2 mL suspension 0.5 mg inhalation R BID 06/29/24 06/29/24 History
for nebulization
calcium carbonate (Calcium 600) 600 mg PO NOON 06/29/24 06/29/24 History
furosemide 20 mg tablet 20 mg PO DAILY 06/29/24 06/29/24 History
mycophenolate mofetil 500 mg tablet 500 mg PO DAILY@1900 06/29/24 06/29/24 History
prednisone 10 mg tablet 20 mg PO DAILY 06/29/24 06/29/24 History
spironolactone 25 mg tablet 12.5 mg PO DAILY 06/29/24 06/29/24 History
therapeutic multivitamin 1 tab PO NOON 06/29/24 06/29/24 History
Review of Systems
-
denies any urinary frequency urgency or dysuria. Positive moderate shortness of breath
All other systems: Negative unless noted
Physical Exam
Vital Signs
Vital Signs
Temp Pulse Resp BP Pulse Ox
98.9 F 92 15 106/70 97
06/29/24 13:05 06/29/24 16:43 06/29/24 15:07 06/29/24 16:43 06/29/24 15:07
Lab Results
WBC 14.2 10^3/uL (4.8-10.8) H 06/29/24 04:55
RBC 2.96 10^6/uL (4.20-5.40) L 06/29/24 04:55
Hgb 8.6 g/dL (12.0-16.0) L 06/29/24 04:55
Hct 24.9 % (37.0-47.0) L 06/29/24 04:55
Plt Count 432 10^3/uL (130-400) H 06/29/24 04:55
eGFR > 60.00 06/29/24 11:30
Din-U-Jpavbejogpm Pept 7340 pg/ml 06/29/24 04:55
Albumin 4.1 g/dl (3.5-5.0) 06/29/24 05:57
Physical Exam
General no acute distress
HEENT no cephalic atraumatic extraocular muscle intact no scleral icterus no JVD neck supple
lungs clear to auscultation bilateral
heart regular S1-S2 positive
abdomen bowel sounds present/bladder distention
extremities no edema pulses present bilateral
Neurologically nonfocal alert and oriented x 3
Skin no lesions no abrasions no petechiae
Psych normal affect no bizarre behavior
Data Reviewed
-
Radiology: Image Personally Visualized and interpreted ( bilateral patchy infiltrate)
Assessment/Plan
-
83-year-old female was a past medical history of interstitial lung disease not currently on home O2, history of CHF with preserved EF presents to the emergency department with worsening shortness of breath over the last 6 days[address]
renal consul was place for hyponatremia of 126 on admission it decreased down to 123.
Patient diagnosed with influenza.
Of note she was on hydrochlorothiazide until Monday of this week one was changed to Aldactone.
Medical nurse did a bladder scan showed over 700.
Impression.
Acute hyponatremia.
Influenza/pneumonia.
Interstitial lung disease.
Urinary retention.
Hypertension.
CHF.
Plan.
hyponatremia of 126,123 risk factors include lung disease, urinary retention
Hold spironolactone.
urine sodium may be from her urinary retention she has a 700 mL in a bladder.
Will do a straight cath she does not avoid per protocol.
Await urine sodium although she's beginning Lasix twice a day to likely caused to be elevated.
okay continue Lasix at this time.
Fluid restrict.
Repeat urine sodium after straight catheterization.
Continue Tamiflu/ dual nabs/IV steroids
[2024-06-29 20:23] LABS: Blood Urea Nitrogen 25 mg/dl (7-17); Calcium 8.5 mg/dl (8.4-10.2); Carbon Dioxide 29 mmol/L (22-30); Chloride 89 mmol/L (98-107); Estimated Creatinine Clearance 52 ml/min; Glucose 130 mg/dl (70-99); Potassium 4.1 mmol/L (3.5-5.1); Sodium 125 mmol/L (135-145); eGFR > 60.00
[2024-06-29 21:43] LABS: Osmolality Urine 313 mOsm/kg (300-900)
[2024-06-29 22:28] LABS: Urine Albumin Negative (Neg - Trace); Urine Bilirubin Negative (Negative); Urine Character Clear (Clear); Urine Color Yellow; Urine Glucose Negative (Negative); Urine Ketone Negative (Negative); Urine Leukocyte Negative (Negative); Urine Nitrite Negative (Negative); Urine Occult Blood Negative (Negative); Urine Urobilinogen Negative (Neg - 1+)
[2024-06-29 22:30] LABS: Urine Sodium 66 mmol/L (30-90)
[2024-06-30] VITALS (17 sets, daily range): BP systolic 117–141; BP diastolic 33–56; PULSE 80–84; O2SAT 95; BMI 28.2
[2024-06-30] MEDS: HEPARIN 5000 UNITS SC ×4 (00:53→23:31)
[2024-06-30 03:33] LABS: Hematocrit 21.7 % (37.0-47.0); Hemoglobin 7.5 g/dL (12.0-16.0); Mean Corp Hgb Conc. 34.6 g/dL (33.0-37.0); Mean Corpuscular Hgb 28.7 pg (27.0-31.0); Mean Corpuscular Volume 83.1 fL (81.0-99.0); Mean Platelet Volume 10.5 fL (7.4-10.4); Platelet Count 362 10^3/uL (130-400); Red Blood Cell Count 2.61 10^6/uL (4.20-5.40); Red Cell Dist. Width 17.7 % (11.5-14.5); White Blood Cell Count 9.4 10^3/uL (4.8-10.8)
[2024-06-30 03:57] LABS: Blood Urea Nitrogen 22 mg/dl (7-17); Calcium 8.5 mg/dl (8.4-10.2); Carbon Dioxide 30 mmol/L (22-30); Chloride 91 mmol/L (98-107); Estimated Creatinine Clearance 61 ml/min; Glucose 125 mg/dl (70-99); Iron 35 ug/dl (37-170); Magnesium 2.2 mg/dl (1.6-2.3); Sodium 126 mmol/L (135-145); eGFR > 60.00
[2024-06-30 04:05] LABS: Percent Saturation 12 % (20-50); Total Iron Binding Capacity 274 ug/dl (265-497)
[2024-06-30 05:03] LABS: Folate > 20.0 ng/ml (2.76-20); Vitamin B12 > 1000 pg/ml (239-931)
[2024-06-30] MEDS: SOLU-MEDROL PF 40 MG IV ×2 (05:24→18:16)
--- NOTE | 2024-06-30 06:24 | W.PN.HOSP.TC ---
Today's Communication/Plan
-
wean O2 as tolerated
cont scheduled Neb therapy
steroids
Tamiflu
diuresis
oral iron supplementation
Assessment / Plan
Assessment / Plan
Physical Exam
General: No acute distress appears comfortable at this time.
HEENT: NormoCephalic, Anicteric, Moist mucous membranes and Atraumatic
Respiratory: rhonchi b/l on nasal cannula supplementation non-labored respiration
Cardiac: S1/S2 and Tachycardia
GI: Soft, Non Tender, Non Distended and Normal Bowel Sounds
Musculoskeletal: No Clubbing, No Cyanosis and No Edema
Skin: Warm
Neuro: AO x 3
Psych: Calm
83F ILD HFpEF here for Flu acute on chronic HFpEF w/ associate hyponatremia
#Acute Hypoxic respiratory distress/failure - Influenza A positive
#ILD
- IMU
- wean O2 supplementation as tolerated
- neg procal, no need for abx at this time
- Tamiflu
- iv solu-medrol 40 q 12 for presumed ILD exacerbation
-cont home ICS
-cont home mycophenolate
- pulmonary consult appreciated
# HFpEF - EF 55% several years ago with PASP of 44. No known valvular disease at the time. Now has weight gain, peripheral edema and more interstitial markings w/ shaila-bronchial cuffing concerning for pulm edema versus worsening pulm htn. BNP >
7000.
- continue IV lasix 40mg q 12
- hold home spironolactone 12.5 daily as per Nephro
- cardiology consult appreciated
# Hyponatremia - Na down to 126, usually around 130. 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
- Fluid restriction diuretics as above
- monitor Na
- nephrology consult appreciated hold home spironolactone, samsca 06/30/24
#Chronic Anemia
#Mild Iron Def Anemia
monitor H&H stable
no need for transfusion at this time
PO iron supplementation started, cont
PT/OT appreciated Home Health
DVT PPX - heparin sq
Code status - Do not intubate
I spent a total of 50 minutes with the patient or on the floor. More than 50% of this time involved counseling and coordination of care.
Anticipated Discharge: 24 - 48 hours
Subjective/Interval History
-
Date of Service: June 30, 2024
No acute distress sitting up comfortably in bed. Continues to report improvement in symptoms. Oxygen supplementation weaned to 2L.
Objective Data
-
Labs:
Laboratory Results
06/29/24 06/30/24
19:59 03:24
WBC 9.4
Hgb 7.5 L
Hct 21.7 L
Plt Count 362
Sodium 125 L 126 L
Potassium 4.1 4.0
Chloride 89 L 91 L
Carbon Dioxide 29 30
BUN 25 H 22 H
Creatinine 0.7 0.5 L
Glucose 130 H 125 H
Calcium 8.5 8.5
Vital Signs:
Vital Signs
Temp Pulse Resp BP Pulse Ox
98.4 F 75 22 127/46 95
06/30/24 03:00 06/30/24 06:00 06/30/24 06:00 06/30/24 06:00 06/30/24 06:00
I&O
06/28/24 06/29/24 06/30/24
06:59 06:59 06:59
Output Total 800 / 800
Balance -800 / -800
--- NOTE | 2024-06-30 07:00 | PTCARENOTE ---
pt received at change of shift from previous RN. Pt AAOX3. denies pain. pt on 4L nasal cannula, titrated down to 2L. sat 96%. lung sounds diminished. dyspnea on exertion. SR on telemetry with pacs, BBB. +1 pitting lower extremity edema. active bowel
sounds. voiding in commode without difficulty. pt updated on plan of care. see worklist for full nursing assessment and interventions.
[2024-06-30] MEDS: PULMICORT 0.5 MG INH ×2 (07:54→20:10)
[2024-06-30] MEDS: VENTOLIN NEBULES 2.5 MG INH ×4 (07:54→20:10)
[2024-06-30] MEDS: LASIX 40 MG IV ×2 (08:01→15:19)
[2024-06-30] MEDS: FEOSOL 325 MG PO (08:01)
[2024-06-30] MEDS: TAMIFLU 75 MG PO ×2 (08:01→19:31)
--- NOTE | 2024-06-30 08:50 | W.PN.CARDCBS ---
Today's Communication / Plan
-
Continue IV Lasix today, may be able to change to orals tomorrow
Impression / Plan
-
PCP: Aiden Hopkins
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
83-year-old female with history of hypertension, interstitial lung disease, chronic lower extremity edema, normal LV function, with recent 8 pound weight gain over 2 months, increasing shortness of breath and lower extremity edema over the past
week. Outpatient diuretics adjusted and uptitrated with no improvement in symptoms. Presented to ED 06/28/2024 and influenza A positive. proBNP elevated at 7300. Chest x-ray concerning for pneumonia cannot exclude pulmonary edema.
COVID-negative.
Impression:
Acute hypoxic respiratory distress
Influenza A positive
Acute heart failure preserved EF
Interstitial lung disease
Chronic lower extremity edema
Hyponatremia
Previous cardiovascular testing:
Echo 02/27/2024: Normal LV size, wall thickness, systolic function, EF 55 to 60%, no wall motion abnormalities, normal RV size and function, mild TR, PA P 40 to 45 mmHg
Assessment and plan:
Acute HFpEF
proBNP greater than 7000
-On admission treatment initiated with IV diuresis with Lasix 40 mg IV twice daily
Weight is down anywhere between 5 to 7 pounds and fluid balance is -800 cc overnight, creatinine stable potassium 4.0 magnesium 2.2
As long as okay with renal, continue IV Lasix diuresis today
-Spironolactone was discontinued this admission due to hyponatremia
-Could consider repeat echo if symptoms do not improve with treatment of flu/pneumonia and with diuresis, but not needed at this point
Peripheral venous insufficiency
Has known chronic lower extremity edema and had been managed with oral Lasix and spironolactone which was recently changed from oral Lasix and HCTZ
-Rec compression stockings for history of chronic lower extremity edema
Hypoxia in setting of underlying interstitial lung disease and now influenza A
Also some component of volume overload from heart failure with preserved ejection fraction
- diuresing with IV Lasix
- further management as per primary service regarding interstitial lung disease and likely influenza A pneumonia
Tamiflu/ dual nabs/IV steroids
Hypertension
BPs 110s- 120s/40s
-spironolactone discontinued June 29, 2024 over concern it is contributing to significant hyponatremia so we will need to follow blood pressure trends and consider alternative antihypertensive drug if needed
Hyponatremia
She was diagnosed with influenza A
of note she was on hydrochlorothiazide until Monday of this week one was changed to Aldactone
-Nephrology has been consulted
Spironolactone has been discontinued
Fluid restriction ordered
Anemia
Progressive anemia this admission
Hemoglobin in April 2023 was 11.5, April 2024 10.9, on admission 06/29/2024 hemoglobin is 8.6 and today 06/30/2024 hemoglobin is 7.5
Further evaluation and management of progressive anemia as per primary service
total time 54 min
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
Subjective
Date of Service: June 30, 2024
She tells me she is feeling ' much better' today less short of breath. Still no chest pain or palpitations. No dizziness
Objective
Labs:
06/30/24 03:24
Labs
Hgb 7.5 g/dL (12.0-16.0) L 06/30/24 03:24
Hct 21.7 % (37.0-47.0) L 06/30/24 03:24
Plt Count 362 10^3/uL (130-400) 06/30/24 03:24
Sodium 126 mmol/L (135-145) L 06/30/24 03:24
Potassium 4.0 mmol/L (3.5-5.1) 06/30/24 03:24
BUN 22 mg/dl (7-17) H 06/30/24 03:24
Creatinine 0.5 mg/dL (0.6-1.0) L 06/30/24 03:24
Glucose 125 mg/dl (70-99) H 06/30/24 03:24
Troponins
06/29/24
04:55
Troponin I 0.017
Vital Signs and I&O:
Vital Signs
Temp Pulse Resp BP Pulse Ox
98.4 F 81 25 131/48 94
06/30/24 03:00 06/30/24 08:01 06/30/24 08:00 06/30/24 08:01 06/30/24 08:00
Vital Signs
Temp Pulse Resp BP Pulse Ox
98.4 F 81 25 131/48 94
06/30/24 03:00 06/30/24 08:01 06/30/24 08:00 06/30/24 08:01 06/30/24 08:00
Intake & Output
06/28/24 06/29/24 06/30/24 07/01/24
06:59 06:59 06:59 06:59
Output Total 800 / 800
Balance -800 / -800
Physical Exam
Physical Exam
Sitting in chair, appears brighter today
Awake and alert oriented x 3
Lungs are clear to auscultation bilaterally
Regular normal S1 and S2, no S3 no S4, grade 1/6 apical holosystolic murmur no rub
Abdomen soft nontender nondistended with normoactive bowel sounds
Extremities +1 pretibial pitting edema
Neurologic exam is grossly nonfocal
Skin is without rashes
--- NOTE | 2024-06-30 09:24 | W.PN.PUL3 ---
Today's Communication / Plan
-
Continue systemic steroids
Tamiflu
Nebulized albuterol with prn DuoNebs + budesonide
Diuresis
CellCept (home dose) resumed
Up OOB as tolerated
Incentive spirometer
Pulmonary service will continue to follow along
Assessment
-
Assessment: 83-year-old female with a history of ILD on CellCept, GERD, pulmonary hypertension, ANDRE, hypertension, and history of pneumonia who presented with worsening SOB. She says that her shortness of breath has been happening for a few days
and she called our pulmonary office on 06/27/2024 saying she had a bad night with worsening shortness of breath, and we started her on steroids (06/27/2024). She says she took 'too much' of the steroids on . She currently prescribed dose on
Monday. Per the medic, her room air pulse oximetry was 88%. After nebulizer treatment her pulse ox yosvany to 99% and she felt better. Patient reports today she had a family gathering about a week ago. In the ER she was afebrile to 98.7 �F, pulse
rate 107, breathing at 34 breaths/min, BP 160/57 and saturating 85% on room air, which improved to 96% on 4 L/min. Labs showed WBC 14.2, Hb 8.6, platelet count 432, 24% bands, sodium 126, chloride 91, troponin negative at 0.017, proBNP elevated at
7340, procalcitonin negative at 0.07, and COVID antigen negative. Flu swab was positive for influenza A. Imaging showed moderate patchy and confluent interstitial and airspace opacities with suspected pneumonia versus pulmonary edema. In the ER
she was given 40 mg Lasix, DuoNebs, Solu-Medrol 125 mg and Tamiflu. Due to hypoxia with increased work of breathing, she was started on BiPAP and admitted to the IMU and pulmonary service consulted for additional management/recommendations.
Chronic conditions CYCLE COUNTER: GERD, ILD on CellCept, pulmonary hypertension, iron deficiency anemia, hypertension, history of pneumonia, diverticulosis
Impression:
#Acute respiratory failure with hypoxia on supplemental oxygen due to influenza A pneumonia and interstitial edema
#Acute HFpEF exacerbation
#Leukocytosis with bandemia - leukocytosis resolved as of 06/30/2024
#Hypochloremic, hyponatremia likely due to reduced PO intake
#Elevated proBNP suspicious for acute decompensated heart failure
#Acute on chronic anemia (baseline Hb 10-11 g/dL)
#Chronic thrombocytosis
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
#History of pulmonary hypertension (moderately elevated PASP)
#GERD
#Hypertension
Plan:
- Patient has markedly improved since being hospitalized and is now off of BiPAP and on nasal cannula and breathing comfortably
- Maintain SpO2 >90-94% with supplemental O2 and wean down as tolerated
- She will need a walking pulse oximetry prior to discharge
- Patient found to be flu A on nasal swab this morning
- CXR from 06/29/2024 shows bilateral interstitial/airspace opacities. Given that her procalcitonin is negative at 0.07, CXR abnormalities likely due to viral pneumonia
- Hold off on antibiotics for now and continue to observe while trending WBC and monitoring her fever curve
- Continue tamiflu x 5 days
- Continue systemic steroids and wean as she clinically improves - currently on solumedrol 40mg IV q12hr
- Nebulized albuterol QID with prn Duonebs
- Cellcept resumed
- Given that her proBNP is elevated and there is bilateral interstitial opacities with concern for interstitial edema, continue with IV diuresis
- Currently on Lasix 40 mg IV BID
- Maintain net negative fluid balance as tolerated while trending UOP, sNa and sCr
- Repeat echo;last TTE from 02/27/2024 showed normal biventricular size & function with moderately elevated PASP to 40-45 mmHg w/no significant change compared to prior echo from 2021
- Incentive spirometer q1hr while awake
- Replete electrolytes with K>4, Mg>2
- Maintain euglycemia with goal BG >100 and <180
- Transfuse PRBC as needed to keep Hb >7g/dL
- Up OOB as tolerated
- PT/OT
- DVT ppx: HSQ
Pulmonary service will continue to follow along. Ultimately patient will follow-up with us in the office as she usually sees Dr. Aguiar. Last visit was on 06/26/2024 with HARLEY Lozano.
Data:
CXR 06/29/2024: Progressive parenchymal opacity, probable pneumonia. Cannot exclude pulmonary edema in the proper clinical setting, though the heart remains stable, top normal in size.
Total time spent today was 36 minutes for this encounter. Time includes reviewing laboratory test/imaging results, reviewing pertinent medical records, obtaining and reviewing medical history, performing an appropriate exam, ordering medications,
tests and procedures. Time also includes documentation of this encounter, coordinating patient care and communicating with other healthcare professionals. Total time does not include separately billed tests performed on this date of service.
Subjective Data
-
Date of Service:
Date of Service: June 30, 2024
Chief Complaint: Pulmonary Follow Up
Subjective:
Patient seen and evaluated this morning (late note entry). She denies shortness of breath at rest although still feels winded with activity. Currently on 2 L/min nasal cannula saturating 96%. Heart rate 86 and BP 135/46. No acute events reported
from overnight. She denies chest pain, abdominal pain, nausea, vomiting, fevers or chills.
Review of Systems
General: Other (Negative unless mentioned above)
Objective Data
Data Reviewed
Vital Signs / I&O / Oxygen:
Vital Signs
Temp Pulse Resp BP Pulse Ox
98.4 F 81 25 131/48 94
06/30/24 03:00 06/30/24 08:01 06/30/24 08:00 06/30/24 08:01 06/30/24 08:00
Intake and Output
06/29/24 06/30/24 07/01/24
06:59 06:59 06:59
Output Total 800 / 800
Balance -800 / -800
SaO2 94
Nasal Cannula flow liters per 3
minute
Physical Exam
General: Respiratory Distress (negative), Comfortable, Chills (negative) and Sweats (negative)
HEENT: Normocephalic and Anicteric
Cardiovascular: S1-S2, Rub (negative) and Peripheral Edema (+1 lower extremity edema bilaterally)
Respiratory: Wheeze (negative), Crackles (Bilateral), Rhonchi (negative), Non-Labored Respirations and Stridor (negative)
GI: Soft, Non Distended, Non Tender and Normal Bowel Sounds
Neurology: AO x 3 and Tremors (negative)
Skin: Warm, Dry, Cyanosis (negative) and Jaundice (negative)
Labs/Micro/Reports
Lab Data
06/30/24 03:24
Microbiology
06/29/24 04:55 Nasal Swab Influenza Types A & B (DARRYN) - Final
Influenza A Positive, NAAT
[2024-06-30 12:20] LABS: Hematocrit 26.8 % (37.0-47.0)
[2024-06-30] MEDS: OSCAL CAL 500 500 MG PO (13:19)
[2024-06-30] MEDS: SAMSCA 15 MG PO (13:19)
[2024-06-30] MEDS: THERAGRAN 1 TABLET PO (13:19)
--- NOTE | 2024-06-30 15:17 | W.PN.NEPH.PH ---
Today's Communication / Plan
-
samsca
Assessment/Plan
-
83-year-old female was a past medical history of interstitial lung disease not currently on home O2, history of CHF with preserved EF presents to the emergency department with worsening shortness of breath over the last 6 days.
renal consul was place for hyponatremia of 126 on admission it decreased down to 123.
Patient diagnosed with influenza.
Of note she was on hydrochlorothiazide until Monday of this week one was changed to Aldactone.
Medical nurse did a bladder scan showed over 700.
Impression.
Acute hyponatremia.
Influenza/pneumonia.
Interstitial lung disease.
Urinary retention.
Hypertension.
CHF.
Plan.
hyponatremia of 126,123 risk factors include lung disease, urinary retention
Hold spironolactone.
urine sodium may be from her urinary retention she has a 700 mL in a bladder.
okay continue Lasix at this time.
Fluid restrict.
Continue Tamiflu/ dual nabs/IV steroids
current sodium at 126
urine sodium 66 in the setting of diuretic
I will give one dose of samsca the today.
Repeat serum sodium
-
-
Date of Service: June 30, 2024
CC / HPI / ROS
-
Chief Complaint:
shortness of breath
History of Present Illness:
presents with shortness of breath influenza hyponatremia improvement
Review of Systems:
comfortable no chest pain or shortness of breath
Labs
-
Labs:
WBC 9.4 10^3/uL (4.8-10.8) 06/30/24 03:24
RBC 2.61 10^6/uL (4.20-5.40) L 06/30/24 03:24
Hgb 9.0 g/dL (12.0-16.0) L 06/30/24 12:08
Hct 26.8 % (37.0-47.0) L 06/30/24 12:08
Plt Count 362 10^3/uL (130-400) 06/30/24 03:24
Sodium 126 mmol/L (135-145) L 06/30/24 03:24
Potassium 4.0 mmol/L (3.5-5.1) 06/30/24 03:24
Chloride 91 mmol/L (98-107) L 06/30/24 03:24
Carbon Dioxide 30 mmol/L (22-30) 06/30/24 03:24
BUN 22 mg/dl (7-17) H 06/30/24 03:24
Creatinine 0.5 mg/dL (0.6-1.0) L 06/30/24 03:24
eGFR > 60.00 06/30/24 03:24
Glucose 125 mg/dl (70-99) H 06/30/24 03:24
Calcium 8.5 mg/dl (8.4-10.2) 06/30/24 03:24
Phosphorus 4.0 mg/dl (2.5-4.5) 06/30/24 03:24
Xkl-H-Htfvkmdmtwz Pept 7340 pg/ml 06/29/24 04:55
Albumin 4.1 g/dl (3.5-5.0) 06/29/24 05:57
Physical Exam
-
Vital Signs:
Vital Signs
Temp Pulse Resp BP Pulse Ox
98.4 F 78 18 128/39 94
06/30/24 07:50 06/30/24 15:04 06/30/24 15:04 06/30/24 14:00 06/30/24 15:04
Respiratory:: Bilateral: Coarse
Lung Excursion:: Normal
Abdomen:: Soft
Bowel Sounds:: Normal
Extremity Edema:: None: Bilateral:
Hernandez Catheter: No
[2024-06-30] MEDS: CELLCEPT 500 MG PO (18:16)
[2024-07-01] VITALS (10 sets, daily range): BP systolic 102–149; BP diastolic 38–65; BMI 27.1
[2024-07-01 04:32] LABS: Hematocrit 25.3 % (37.0-47.0); Hemoglobin 8.4 g/dL (12.0-16.0); Mean Corp Hgb Conc. 33.2 g/dL (33.0-37.0); Mean Corpuscular Hgb 28.3 pg (27.0-31.0); Mean Corpuscular Volume 85.2 fL (81.0-99.0); Mean Platelet Volume 10.9 fL (7.4-10.4); Platelet Count 446 10^3/uL (130-400); Red Blood Cell Count 2.97 10^6/uL (4.20-5.40); Red Cell Dist. Width 18.1 % (11.5-14.5); White Blood Cell Count 11.7 10^3/uL (4.8-10.8)
[2024-07-01 04:53] LABS: Blood Urea Nitrogen 30 mg/dl (7-17); Calcium 8.7 mg/dl (8.4-10.2); Carbon Dioxide 33 mmol/L (22-30); Chloride 93 mmol/L (98-107); Estimated Creatinine Clearance 50 ml/min; Glucose 128 mg/dl (70-99); Magnesium 2.4 mg/dl (1.6-2.3); Phosphorus 3.7 mg/dl (2.5-4.5); Potassium 4.3 mmol/L (3.5-5.1); Sodium 134 mmol/L (135-145); eGFR > 60.00
[2024-07-01] MEDS: SOLU-MEDROL PF 40 MG IV (05:34)
--- NOTE | 2024-07-01 06:23 | W.PN.HOSP.TC ---
Addendum entered and electronically signed by Jen Rojas MD 07/02/24 07:59:
Hyponatremia possibly acute on chronic with possible SIADH contributing
Original Note:
Today's Communication/Plan
-
Medically stable for downgrade to Tele
wean O2 as tolerated
cont scheduled Neb therapy
steroids
Tamiflu
diuresis
ECHO
Assessment / Plan
Assessment / Plan
Physical Exam
General: No acute distress appears comfortable at this time.
HEENT: NormoCephalic, Anicteric, Moist mucous membranes and Atraumatic
Respiratory: rhonchi b/l on nasal cannula supplementation non-labored respiration
Cardiac: S1/S2 and Tachycardia
GI: Soft, Non Tender, Non Distended and Normal Bowel Sounds
Musculoskeletal: No Clubbing, No Cyanosis and No Edema
Skin: Warm
Neuro: AO x 3
Psych: Calm
83F ILD HFpEF here for Flu acute on chronic HFpEF w/ associate hyponatremia
#Acute Hypoxic respiratory distress/failure - Influenza A positive
#ILD
- IMU
- wean O2 supplementation as tolerated
- neg procal, no need for abx at this time
- Tamiflu
- iv solu-medrol 40 q 12 for presumed ILD exacerbation
-cont home ICS
-cont home mycophenolate
- pulmonary consult appreciated
# HFpEF - EF 55% several years ago with PASP of 44. No known valvular disease at the time. Now has weight gain, peripheral edema and more interstitial markings w/ shaila-bronchial cuffing concerning for pulm edema versus worsening pulm htn. BNP >
7000.
- continue IV lasix 40mg q 12
- hold home spironolactone 12.5 daily as per Nephro
- cardiology consult appreciated
- follow up ECHO
# Hyponatremia - Na down to 126, usually around 130. 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
- Fluid restriction diuretics as above
- monitor Na
- nephrology consult appreciated hold home spironolactone, cachorro 06/30/24
#Chronic Anemia
#Mild Iron Def Anemia
monitor H&H stable
no need for transfusion at this time
PO iron supplementation started, cont
PT/OT appreciated Home Health
DVT PPX - heparin sq
Code status - Do not intubate
Medically stable for downgrade to Tele.
I spent a total of 50 minutes with the patient or on the floor. More than 50% of this time involved counseling and coordination of care.
Anticipated Discharge: 24 - 48 hours
Subjective/Interval History
-
Date of Service: July 01, 2024
No acute distress. Reports feeling well. remains on oxygen supplementation, non-labored respiration.
Objective Data
-
Labs:
Laboratory Results
07/01/24
04:09
WBC 11.7 H
Hgb 8.4 L
Hct 25.3 L
Plt Count 446 H D
Sodium 134 L D
Potassium 4.3
Chloride 93 L
Carbon Dioxide 33 H
BUN 30 H
Creatinine 0.7
Glucose 128 H
Calcium 8.7
Vital Signs:
Vital Signs
Temp Pulse Resp BP Pulse Ox
98.3 F 69 20 143/54 91
07/01/24 04:13 07/01/24 06:00 07/01/24 06:00 07/01/24 06:00 07/01/24 06:00
I&O
06/29/24 06/30/24 07/01/24
06:59 06:59 06:59
Intake Total 960 / 960
Output Total 800 / 800 1800 / 1800
Balance -800 / -800 -840 / -840
[2024-07-01] MEDS: PULMICORT 0.5 MG INH ×2 (08:04→20:00)
[2024-07-01] MEDS: VENTOLIN NEBULES 2.5 MG INH ×4 (08:04→20:01)
--- NOTE | 2024-07-01 08:49 | W.PN.PUL3 ---
Today's Communication / Plan
-
Currently on 1L NC, home O2 eval placed
Transition IV steroids to PO course to taper to her home dose (20mg daily)
Transition to PO lasix per team
Complete tamiflu
Encouraged OOB/PT/OT
OP Pulm FU recommended, in chart
No further recs from our standpoint, will sign off at this time-please call with questions
Assessment
-
83-year-old female with a history of ILD on CellCept, GERD, pulmonary hypertension, ANDRE, hypertension, and history of pneumonia who presented with worsening SOB. She says that her shortness of breath has been happening for a few days and she called
our pulmonary office on 06/27/2024 saying she had a bad night with worsening shortness of breath, and we started her on steroids (06/27/2024). She says she took 'too much' of the steroids on . She currently prescribed dose on Monday. Per
the medic, her room air pulse oximetry was 88%. After nebulizer treatment her pulse ox yosvany to 99% and she felt better. Patient reports today she had a family gathering about a week ago. In the ER she was afebrile to 98.7 �F, pulse rate 107,
breathing at 34 breaths/min, BP 160/57 and saturating 85% on room air, which improved to 96% on 4 L/min. Labs showed WBC 14.2, Hb 8.6, platelet count 432, 24% bands, sodium 126, chloride 91, troponin negative at 0.017, proBNP elevated at 7340,
procalcitonin negative at 0.07, and COVID antigen negative. Flu swab was positive for influenza A. Imaging showed moderate patchy and confluent interstitial and airspace opacities with suspected pneumonia versus pulmonary edema. In the ER she was
given 40 mg Lasix, DuoNebs, Solu-Medrol 125 mg and Tamiflu. Due to hypoxia with increased work of breathing, she was started on BiPAP and admitted to the IMU and pulmonary service consulted for additional management/recommendations.
Impression:
#Acute respiratory failure with hypoxia on supplemental oxygen due to influenza A pneumonia and interstitial edema
#Acute HFpEF exacerbation
#Leukocytosis with bandemia - leukocytosis resolved as of 06/30/2024
#Hypochloremic, hyponatremia likely due to reduced PO intake
#Elevated proBNP suspicious for acute decompensated heart failure
#Acute on chronic anemia (baseline Hb 10-11 g/dL)
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
GERD
ILD on CellCept
Pulmonary hypertension (moderately elevated PASP)
Iron deficiency anemia
Hypertension
History of pneumonia
Diverticulosis
Chronic thrombocytosis
Plan:
Patient has markedly improved since being hospitalized and is now off of BiPAP and on nasal cannula and breathing comfortably
- Maintain SpO2 >90-94% with supplemental O2 and wean down as tolerated
- She will need a walking pulse oximetry prior to discharge
Currently on 1L NC, home O2 eval
Patient found to be flu A on nasal swab this morning
CXR from 06/29/2024 shows bilateral interstitial/airspace opacities. Given that her procalcitonin is negative at 0.07, CXR abnormalities likely due to viral pneumonia
Hold off on antibiotics for now and continue to observe while trending WBC and monitoring her fever curve
Continue tamiflu x 5 days
Placed on systemic steroids and wean as she clinically improves - currently on solumedrol 40mg IV q12hr
I will transition to PO course to wean to her home dose (20mg daily)
Nebulized albuterol QID with prn Duonebs
Cellcept resumed
Given that her proBNP is elevated and there is bilateral interstitial opacities with concern for interstitial edema, continue with IV diuresis
Currently on Lasix 40 mg IV BID
Maintain net negative fluid balance as tolerated while trending UOP, sNa and sCr
Repeat ECHO--last TTE from 02/27/2024 showed normal biventricular size & function with moderately elevated PASP to 40-45 mmHg w/no significant change compared to prior echo from 10/2021
Repeat pending
Can transition to PO course per team
- Incentive spirometer q1hr while awake
- Replete electrolytes with K>4, Mg>2
- Maintain euglycemia with goal BG >100 and <180
- Transfuse PRBC as needed to keep Hb >7g/dL
- Up OOB as tolerated
- PT/OT
- DVT ppx: HSQ
Pulmonary service will continue to follow along.
Ultimately patient will follow-up with us in the office as she usually sees Dr. Aguiar.
Last visit was on 06/26/2024 with HARLEY Lozano.
Data:
CXR 06/29/2024: Progressive parenchymal opacity, probable pneumonia. Cannot exclude pulmonary edema in the proper clinical setting, though the heart remains stable, top normal in size.
ECHO 02/27/24- Normal left ventricular size, wall thickness and systolic function. No regional wall motion abnormalities are seen. LV ejection fraction is 55-60%. Mild tricuspid regurgitation. Estimated pulmonary artery pressure of 40-45 mmHg.
Compared to the previous echo from October 2021, there is no significant change.
-----
Total time spent today was 51 minutes for this encounter. Time includes reviewing laboratory test/imaging results, reviewing pertinent medical records, obtaining and reviewing medical history, performing an appropriate exam, ordering medications,
tests and procedures. Time also includes documentation of this encounter, coordinating patient care and communicating with other healthcare professionals. Total time does not include separately billed tests performed on this date of service.
Subjective Data
-
Date of Service:
Date of Service: July 01, 2024
Chief Complaint: Pulmonary Follow Up
Subjective:
Remains on 1L NC, no new SOB
Sitting in chair
Objective Data
Data Reviewed
Vital Signs / I&O / Oxygen:
Vital Signs
Temp Pulse Resp BP Pulse Ox
98.3 F 70 19 143/54 94
07/01/24 04:13 07/01/24 08:03 07/01/24 08:03 07/01/24 06:00 07/01/24 08:03
Intake and Output
06/30/24 07/01/24 07/02/24
06:59 06:59 06:59
Intake Total 960 / 960
Output Total 800 / 800 1800 / 1800
Balance -800 / -800 -840 / -840
SaO2 94
Nasal Cannula flow liters per 1
minute
Physical Exam
General: Respiratory Distress (negative), Comfortable, Chills (negative) and Sweats (negative)
HEENT: Normocephalic and Anicteric
Cardiovascular: S1-S2, Rub (negative) and Peripheral Edema (+1 lower extremity edema bilaterally)
Respiratory: Clear, Wheeze (negative), Rhonchi (negative), Non-Labored Respirations and Stridor (negative)
GI: Soft, Non Distended, Non Tender and Normal Bowel Sounds
Neurology: AO x 3 and Tremors (negative)
Skin: Warm, Dry, Cyanosis (negative) and Jaundice (negative)
Labs/Micro/Reports
Lab Data
07/01/24 04:09
07/01/24 04:09
Microbiology
06/29/24 04:55 Nasal Swab Influenza Types A & B (DARRYN) - Final
Influenza A Positive, NAAT
[2024-07-01] MEDS: HEPARIN 5000 UNITS SC ×3 (09:04→23:00)
[2024-07-01] MEDS: FEOSOL 325 MG PO (09:05)
[2024-07-01] MEDS: LASIX 40 MG IV ×2 (09:05→16:12)
[2024-07-01] MEDS: TAMIFLU 75 MG PO ×2 (09:05→20:10)
--- NOTE | 2024-07-01 10:05 | CM ---
CM following re: discharge planning.
Reviewed pt's chart, met with pt.
Pt is an 83 year old female, admitted with primary dx of Acute Hypoxic respiratory distress/failure - Influenza A positive.
Pt reports she lives with 2SH, 1 step to enter, has 2 supportive children. Pt reports she ambulates with a cane, known to VN.
PT and OT evaluations noted - home PT/OT recommended. Pt is aware, expressed her agreement and she preferred [facility]. A referral to [facility] made.
PCP: Aiden Hopkins
Pharmacy: [facility].
D/C plan: home with [facility] and family support. to transport at discharge.
CM will follow with discharge plan updates as hospitalization progresses
--- NOTE | 2024-07-01 11:24 | VNURNOTE ---
Home Health Liaison met spoke with patient's spouse Clemencia to discuss [facility] nurse/therapy, visits, schedule and homebound status. He is familiar with [facility] and is agreeable. He understands that visits at home will be 2-3 x per week to assess and teach
medical management. Spouse is aware that [facility] will contact them for start of care in 1-2 days after discharge from . Will watch for potential new home 02. Spouse confirms patient has a neb machine at home and a scale. [facility] referral completed in
[facility].
--- NOTE | 2024-07-01 11:41 | W.PN.CARDCBS ---
Today's Communication / Plan
-
Continue IV Lasix for now, or prerenal
Await echocardiogram
Consider SGLT2 antagonist for HFpEF
Impression / Plan
-
PCP: Aiden Hopkins
Primary lute packer or applier: Luis M Berger
83-year-old female with history of hypertension, interstitial lung disease, chronic lower extremity edema, normal LV function, with recent 8 pound weight gain over 2 months, increasing shortness of breath and lower extremity edema over the past
week. Outpatient diuretics adjusted and uptitrated with no improvement in symptoms. Presented to ED 06/28/2024 and influenza A positive. proBNP elevated at 7300. Chest x-ray concerning for pneumonia cannot exclude pulmonary edema.
COVID-negative.
Impression:
Acute hypoxic respiratory distress
Influenza A positive
Acute heart failure preserved EF
Interstitial lung disease
Chronic lower extremity edema
Hyponatremia
Anemia
Echo 02/27/2024: Normal LV size, wall thickness, systolic function, EF 55 to 60%, no wall motion abnormalities, normal RV size and function, mild TR, PA P 40 to 45 mmHg
Assessment and plan:
Overall, she looks improved. She still has some lower extremity edema. Continue IV furosemide for now, or per nephrology. Continue spironolactone, consider SGLT2 antagonist for HFpEF..
Sodium is better today. Would avoid hydrochlorothiazide in the future.
Management of influenza A and interstitial lung disease per primary service.
Evaluation of anemia per primary service.
Await echocardiogram
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
Subjective
Date of Service: July 01, 2024:
83-year-old woman with interstitial lung disease and edema, admitted now with influenza and presumed HFpEF, proBNP 7300, chest x-ray with pneumonia versus pulmonary edema
Medications: Subcu heparin, furosemide 40 mg IV twice daily, methylprednisolone, 40 IV every 12, Tamiflu, albuterol, CellCept 500 daily, spironolactone 12.5 daily, iron
144/65, pulse 70, respiratory rate 19, afebrile, weight is 63 kg, If accurate 2.4 kg yesterday, 5.7 kg since admission, pleasant, on mid flow oxygen, no acute distress, few scattered crackles in lungs, regular rate and rhythm, no obvious murmurs JVD
okay, 2+ edema
White count 11.7, hemoglobin 8.4, platelets of 46, BUN and creatinine are 30 and 0.7, potassium is 4.3
Echo is pending
Objective
Labs:
07/01/24 04:09
07/01/24 04:09
Labs
Hgb 8.4 g/dL (12.0-16.0) L 07/01/24 04:09
Hct 25.3 % (37.0-47.0) L 07/01/24 04:09
Plt Count 446 10^3/uL (130-400) H D 07/01/24 04:09
Sodium 134 mmol/L (135-145) L D 07/01/24 04:09
Potassium 4.3 mmol/L (3.5-5.1) 07/01/24 04:09
BUN 30 mg/dl (7-17) H 07/01/24 04:09
Creatinine 0.7 mg/dL (0.6-1.0) 07/01/24 04:09
Glucose 128 mg/dl (70-99) H 07/01/24 04:09
Troponins
06/29/24
04:55
Troponin I 0.017
Vital Signs and I&O:
Vital Signs
Temp Pulse Resp BP Pulse Ox
37.0 C 70 19 144/65 94
07/01/24 07:18 07/01/24 08:03 07/01/24 08:03 07/01/24 08:00 07/01/24 08:03
Vital Signs
Temp Pulse Resp BP Pulse Ox
37.0 C 70 19 144/65 94
07/01/24 07:18 07/01/24 08:03 07/01/24 08:03 07/01/24 08:00 07/01/24 08:03
Intake & Output
06/29/24 06/30/24 07/01/24 07/02/24
07:59 07:59 07:59 07:59
Intake Total 960 / 960
Output Total 800 / 1600 1800 / 1800
Balance -800 / -1120 -840 / -840
Physical Exam
Physical Exam
See above
--- NOTE | 2024-07-01 11:58 | W.PN.NEPH.PH ---
Today's Communication / Plan
-
Follow BMP
Assessment/Plan
-
83-year-old female was a past medical history of interstitial lung disease not currently on home O2, history of CHF with preserved EF presents to the emergency department with worsening shortness of breath over the last 6 days.
renal consul was place for hyponatremia of 126 on admission it decreased down to 123.
Patient diagnosed with influenza.
Of note she was on hydrochlorothiazide until Monday of this week one was changed to Aldactone.
Medical nurse did a bladder scan showed over 700.
Impression.
Acute hyponatremia.
Influenza/pneumonia.
Interstitial lung disease.
Urinary retention.
Hypertension.
CHF.
Plan.
Follow BMP
Maintain fluid restriction until influenza has resolved
Continue Lasix plan to switch to oral tomorrow
-
-
Date of Service: July 01, 2024
CC / HPI / ROS
-
Chief Complaint:
shortness of breath
History of Present Illness:
Sodium up to 134 with Samsca
BP stable
On Tamiflu for influenza
Review of Systems:
no chest pain or shortness of breath
Labs
-
Labs:
WBC 11.7 10^3/uL (4.8-10.8) H 07/01/24 04:09
RBC 2.97 10^6/uL (4.20-5.40) L 07/01/24 04:09
Hgb 8.4 g/dL (12.0-16.0) L 07/01/24 04:09
Hct 25.3 % (37.0-47.0) L 07/01/24 04:09
Plt Count 446 10^3/uL (130-400) H D 07/01/24 04:09
Sodium 134 mmol/L (135-145) L D 07/01/24 04:09
Potassium 4.3 mmol/L (3.5-5.1) 07/01/24 04:09
Chloride 93 mmol/L (98-107) L 07/01/24 04:09
Carbon Dioxide 33 mmol/L (22-30) H 07/01/24 04:09
BUN 30 mg/dl (7-17) H 07/01/24 04:09
Creatinine 0.7 mg/dL (0.6-1.0) 07/01/24 04:09
eGFR > 60.00 07/01/24 04:09
Glucose 128 mg/dl (70-99) H 07/01/24 04:09
Calcium 8.7 mg/dl (8.4-10.2) 07/01/24 04:09
Phosphorus 3.7 mg/dl (2.5-4.5) 07/01/24 04:09
Tkk-O-Xktvckrwfce Pept 7340 pg/ml 06/29/24 04:55
Albumin 4.1 g/dl (3.5-5.0) 06/29/24 05:57
Physical Exam
-
Vital Signs:
Vital Signs
Temp Pulse Resp BP Pulse Ox
98.6 F 79 16 144/65 93
07/01/24 07:18 07/01/24 11:53 07/01/24 11:53 07/01/24 08:00 07/01/24 11:53
Cardiovascular:: Regular rate and rhythm
Respiratory:: Bilateral: Coarse
Lung Excursion:: Normal
Abdomen:: Nontender and Soft
Bowel Sounds:: Normal
Extremity Edema:: None: Bilateral:
[2024-07-01] MEDS: THERAGRAN 1 TABLET PO (13:29)
[2024-07-01] MEDS: OSCAL CAL 500 500 MG PO (13:29)
--- NOTE | 2024-07-01 14:42 | PN.CDI ---
CDI
- -
CDI:
Physician Documentation Request
Admit Date: 06/29/24 06:45
Dear Doctor Crystal,
Please review the following and provide your response in the progress notes.
Clinical Indicators:
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
- 07/01 Nephrology 'Acute hyponatremia'
- 07/01 Pulmonary 'Hypochloremic, hyponatremia likely due to reduced PO intake'
- 1200 ml/day fluid restriction
- 06/30 Samsca x 1
Laboratory Tests
06/29/24 06/29/24 06/29/24
05:57 11:30 19:59
Sodium 126 L 123 L 125 L
06/30/24 07/01/24
03:24 04:09
Sodium 126 L 134 L D
In an attempt to clarify potentially conflicting documentation, please clarify the low sodium
Hyponatremia
SIADH
Other
Use of terms such as suspected, likely, concern for, or probable (associated with a specific diagnosis that is being evaluated, monitored, or treated as if it exists) are acceptable and can be coded in the inpatient setting, when documented at the
time of discharge.
Thank you,
Josselyn Soto RN
CDI Specialist
Please use your independent medical judgment in providing your response.
--- NOTE | 2024-07-01 15:39 | PTCARENOTE ---
OOB all day, pleasant. Received on 2L NC - winded / breathless with talking this am, post IV Lasix that improved. RT did ambulate off O2 desat into the 80s- see documentation. Appetite good , B/B benign. Report given to Miky carey to 421.
[2024-07-01] MEDS: CELLCEPT 500 MG PO (18:08)
[2024-07-02 03:50] VITALS: BP 139/54
[2024-07-02 06:00] VITALS: BMI 26.5
[2024-07-02] MEDS: PULMICORT 0.5 MG INH ×2 (07:12→19:27)
[2024-07-02] MEDS: VENTOLIN NEBULES 2.5 MG INH ×4 (07:12→19:27)
[2024-07-02] MEDS: LASIX 40 MG IV ×2 (07:20→15:25)
[2024-07-02] MEDS: FEOSOL 325 MG PO (07:21)
[2024-07-02] MEDS: TAMIFLU 75 MG PO ×2 (07:21→20:28)
[2024-07-02] MEDS: DELTASONE 50 MG PO (07:21)
[2024-07-02] MEDS: HEPARIN 5000 UNITS SC ×3 (07:21→23:22)
--- NOTE | 2024-07-02 07:25 | W.PN.HOSP.TC ---
Addendum entered and electronically signed by Jen Rojas MD 07/02/24 16:35:
patient is in need of oxygen at 2L nasal canula continuously due to pulse ox of 85% on room air at rest. oxygen will improve hypoxemia. Patien is mobile within the home. Duoneb therapy has been tried and is ineffective in treating hypoxemia-related
symptoms. oxygen is needed to improve symptoms
Addendum entered and electronically signed by Jen Rojas MD 07/02/24 15:46:
ok to dc engine monitor
Original Note:
Today's Communication/Plan
-
wean O2 as tolerated
Bronchodilators
Steroids
Tamiflu
diuresis
Assessment / Plan
Assessment / Plan
Physical Exam
General: No acute distress appears comfortable at this time.
HEENT: NormoCephalic, Anicteric, Moist mucous membranes and Atraumatic
Respiratory: clear to auscultation on nasal cannula supplementation non-labored respiration
Cardiac: S1/S2 NSR
GI: Soft, Non Tender, Non Distended and Normal Bowel Sounds
Musculoskeletal: No Clubbing, No Cyanosis and No Edema
Skin: Warm
Neuro: AO x 3
Psych: Calm
83F ILD HFpEF here for Flu acute on chronic HFpEF w/ associate hyponatremia
#Acute Hypoxic respiratory distress/failure - Influenza A positive
#ILD
- IMU
- wean O2 supplementation as tolerated
- neg procal, no need for abx at this time
- Tamiflu
- iv solu-medrol 40 q 12 for presumed ILD exacerbation, tapered to Prednisone as per Pulm
-cont home ICS
-cont home mycophenolate
- pulmonary consult appreciated
# HFpEF - EF 55% several years ago with PASP of 44. No known valvular disease at the time. Now has weight gain, peripheral edema and more interstitial markings w/ shaila-bronchial cuffing concerning for pulm edema versus worsening pulm htn. BNP >
7000.
- continue IV lasix 40mg q 12
- hold home spironolactone 12.5 daily as per Nephro
- cardiology consult appreciated
- ECHO appreciated EF 60-65% TR worsened from mild to mod and PA pressures increased from 40-45 mmHg to 64 mmHg
# Hyponatremia possibly acute on chronic with possible SIADH contributing
# Hyponatremia - Na down to 126, usually around 130. 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
- Fluid restriction diuretics as above
- monitor Na
- nephrology consult appreciated hold home spironolactone, samsca 06/30/24
-Hyponatremia since improved/resolved
#Chronic Anemia
#Mild Iron Def Anemia
monitor H&H stable
no need for transfusion at this time
PO iron supplementation started, cont
PT/OT appreciated Home Health
DVT PPX - heparin sq
Code status - Do not intubate
I spent a total of 40 minutes with the patient or on the floor. More than 50% of this time involved counseling and coordination of care.
Anticipated Discharge: 24 - 48 hours
Subjective/Interval History
-
Date of Service: July 02, 2024
Weaning down on oxygen supplementation. Overall patient reports feeling well. Denies new acute issues at this time.
Objective Data
-
Labs:
Laboratory Results
07/02/24
06:00
WBC Pending
Hgb Pending
Hct Pending
Plt Count Pending
Sodium Pending
Potassium Pending
Chloride Pending
Carbon Dioxide Pending
BUN Pending
Creatinine Pending
Glucose Pending
Calcium Pending
Vital Signs:
Vital Signs
Temp Pulse Resp BP Pulse Ox
97.9 F 80 15 139/54 94
07/02/24 03:50 07/02/24 07:19 07/02/24 07:19 07/02/24 03:50 07/02/24 07:19
I&O
07/01/24 07/02/24 07/03/24
06:59 06:59 06:59
Intake Total 960 / 960 1260 / 1260
Output Total 1800 / 1800 1250 / 1250
Balance -840 / -840
[2024-07-02 07:47] VITALS: BP 105/59
[2024-07-02 07:57] LABS: Hematocrit 30.4 % (37.0-47.0); Hemoglobin 9.9 g/dL (12.0-16.0); Mean Corp Hgb Conc. 32.6 g/dL (33.0-37.0); Mean Corpuscular Hgb 28.4 pg (27.0-31.0); Mean Corpuscular Volume 87.4 fL (81.0-99.0); Mean Platelet Volume 10.9 fL (7.4-10.4); Platelet Count 498 10^3/uL (130-400); Red Blood Cell Count 3.48 10^6/uL (4.20-5.40); Red Cell Dist. Width 18.6 % (11.5-14.5); White Blood Cell Count 12.9 10^3/uL (4.8-10.8)
[2024-07-02 08:40] LABS: Blood Urea Nitrogen 36 mg/dl (7-17); Calcium 9.5 mg/dl (8.4-10.2); Carbon Dioxide 38 mmol/L (22-30); Chloride 90 mmol/L (98-107); Estimated Creatinine Clearance 50 ml/min; Glucose 65 mg/dl (70-99); Magnesium 2.4 mg/dl (1.6-2.3); Phosphorus 3.3 mg/dl (2.5-4.5); Potassium 3.7 mmol/L (3.5-5.1); Sodium 136 mmol/L (135-145); eGFR > 60.00
[2024-07-02 10:38] VITALS: BP 119/46; PULSE 83; O2SAT 96
[2024-07-02] MEDS: THERAGRAN 1 TABLET PO (11:09)
[2024-07-02] MEDS: OSCAL CAL 500 500 MG PO (11:09)
[2024-07-02 11:18] VITALS: BP 148/55
--- NOTE | 2024-07-02 11:21 | W.PN.CARDCBS ---
Addendum entered and electronically signed by Luis M Frederick MD 07/02/24 14:39:
I saw and examined the patient.
The Cash Register Balancer's note was reviewed and I agree with the note.
Comment: Briefly, 83-year-old woman past medical history of heart failure with preserved ejection fraction presenting with hypoxic respiratory failure found to be influenza positive and also in acute heart failure
Volume status seems to be improved with IV diuresis
Follow daily weights, currently 135 pounds which is lowest on record
Creatinine stable and sodium improving with fluid restriction. Appreciate nephrology input.
Wean supplemental oxygen as able
Hopefully can transition to oral Lasix in the next 24 to 48 hours
Rest per Wendy Zhang
Original Note:
Today's Communication / Plan
-
To consider transition to oral Lasix within next 24 hours
Continue to monitor renal function and electrolytes
Continue treatment of flu per primary and pulmonary service
Wean oxygen as tolerated
Impression / Plan
-
PCP: Aiden Hopkins
Primary precision grinder: Luis M Berger
Impression:
Acute hypoxic respiratory distress
Influenza A positive
Acute heart failure preserved EF
Interstitial lung disease
Chronic lower extremity edema
Hyponatremia
Anemia
Echo 07/01/2024: EF 60 to 65%. Normal regional wall motion and LV size and function. Mild MR. Moderate TR with PAP 64 mmHg.
Echo 02/27/2024: Normal LV size, wall thickness, systolic function, EF 55 to 60%, no wall motion abnormalities, normal RV size and function, mild TR, PA P 40 to 45 mmHg
Assessment and plan:
Presented with acute hypoxic respiratory distress secondary to influenza A and heart failure.
Overall, she looks improved and weight down considerably since admission. Creatinine stable however BUN continues to trend upward currently 36. Consider transitioning to oral Lasix within next 24 hours. Nephrology is following.
Echo overall stable with preserved ejection fraction. However now has moderate TR with increased pulmonary pressure with PAP of 64 mmHg. Pulmonary is following
Continue spironolactone, consider SGLT2 antagonist for HFpEF once patient has improved from influenza
Patient initially found to be natremia on admission. Sodium has now normalized at 136. Would avoid hydrochlorothiazide in the future.
Management of influenza A and interstitial lung disease per primary service with Tamiflu and steroids
Chronic anemia/iron deficiency anemia. Hemoglobin stable at 9.9. No need for transfusion at this time. Continue oral iron supplementation.
Await echocardiogram
HPI 06/29/24:
83-year-old female with history of hypertension, interstitial lung disease, chronic lower extremity edema, normal LV function, with recent 8 pound weight gain over 2 months, increasing shortness of breath and lower extremity edema over the past
week. Outpatient diuretics adjusted and uptitrated with no improvement in symptoms. Presented to ED 06/28/2024 and influenza A positive. proBNP elevated at 7300. Chest x-ray concerning for pneumonia cannot exclude pulmonary edema.
COVID-negative.
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
Subjective
Date of Service: July 02, 2024
Objective
Labs:
07/02/24 07:36
07/02/24 07:36
Labs
Hgb 9.9 g/dL (12.0-16.0) L 07/02/24 07:36
Hct 30.4 % (37.0-47.0) L 07/02/24 07:36
Plt Count 498 10^3/uL (130-400) H 07/02/24 07:36
Sodium 136 mmol/L (135-145) 07/02/24 07:36
Potassium 3.7 mmol/L (3.5-5.1) 07/02/24 07:36
BUN 36 mg/dl (7-17) H 07/02/24 07:36
Creatinine 0.7 mg/dL (0.6-1.0) 07/02/24 07:36
Glucose 65 mg/dl (70-99) L 07/02/24 07:36
Vital Signs and I&O:
Vital Signs
Temp Pulse Resp BP Pulse Ox
97.6 F 79 18 148/55 95
07/02/24 11:18 07/02/24 11:18 07/02/24 11:18 07/02/24 11:18 07/02/24 11:18
Vital Signs
Temp Pulse Resp BP Pulse Ox
97.6 F 79 18 148/55 95
07/02/24 11:18 07/02/24 11:18 07/02/24 11:18 07/02/24 11:18 07/02/24 11:18
Intake & Output
06/30/24 07/01/24 07/02/24 07/03/24
06:59 06:59 06:59 06:59
Intake Total 960 / 960 1260 / 1260
Output Total 800 / 800 1800 / 1800 1250 / 1250
Balance -800 / -800 -840 / -840
Physical Exam
Physical Exam
GEN: No distress, awake, Ox3, sitting in chair currently getting nebulizer
HEENT: supple, anicteric, mmm
LUNGS: Few scattered expiratory wheezes mildly coarse breath sounds on left otherwise CTA; getting nebulizer
CV: Reg, S1/S2, 1/6 syst LSB, no murmur
ABD: soft, BS+, NT/ND
EXT: Trace pedal edema on right, no lower extremity edema on left
NEURO: Gross non-focal
SKIN: No rash, warm, dry, pink
--- NOTE | 2024-07-02 11:49 | W.PN.NEPH.PH ---
Today's Communication / Plan
-
follow BMP
Assessment/Plan
-
83-year-old female was a past medical history of interstitial lung disease not currently on home O2, history of CHF with preserved EF presents to the emergency department with worsening shortness of breath over the last 6 days.
renal consul was place for hyponatremia of 126 on admission it decreased down to 123.
Patient diagnosed with influenza.
Of note she was on hydrochlorothiazide until Monday of this week one was changed to Aldactone.
Medical nurse did a bladder scan showed over 700.
Impression.
Acute hyponatremia.
Influenza/pneumonia.
Interstitial lung disease.
Urinary retention.
Hypertension.
CHF.
Plan.
Follow BMP
Maintain fluid restriction until influenza has resolved
Continue Lasix plan to switch to oral tomorrow if edema better
-
-
Date of Service: July 02, 2024
CC / HPI / ROS
-
Chief Complaint:
shortness of breath
History of Present Illness:
Sodium up to 136 with Samsca 06/30
BP stable
On Tamiflu for influenza
diuresing with IV lasix
Review of Systems:
no chest pain or shortness of breath
Labs
-
Labs:
WBC 12.9 10^3/uL (4.8-10.8) H 07/02/24 07:36
RBC 3.48 10^6/uL (4.20-5.40) L 07/02/24 07:36
Hgb 9.9 g/dL (12.0-16.0) L 07/02/24 07:36
Hct 30.4 % (37.0-47.0) L 07/02/24 07:36
Plt Count 498 10^3/uL (130-400) H 07/02/24 07:36
Sodium 136 mmol/L (135-145) 07/02/24 07:36
Potassium 3.7 mmol/L (3.5-5.1) 07/02/24 07:36
Chloride 90 mmol/L (98-107) L 07/02/24 07:36
Carbon Dioxide 38 mmol/L (22-30) H 07/02/24 07:36
BUN 36 mg/dl (7-17) H 07/02/24 07:36
Creatinine 0.7 mg/dL (0.6-1.0) 07/02/24 07:36
eGFR > 60.00 07/02/24 07:36
Glucose 65 mg/dl (70-99) L 07/02/24 07:36
Calcium 9.5 mg/dl (8.4-10.2) 07/02/24 07:36
Phosphorus 3.3 mg/dl (2.5-4.5) 07/02/24 07:36
Azo-R-Uyhpdmxgxtt Pept 7340 pg/ml 06/29/24 04:55
Albumin 4.1 g/dl (3.5-5.0) 06/29/24 05:57
Physical Exam
-
Vital Signs:
Vital Signs
Temp Pulse Resp BP Pulse Ox
97.6 F 79 18 148/55 95
07/02/24 11:18 07/02/24 11:18 07/02/24 11:18 07/02/24 11:18 07/02/24 11:18
Cardiovascular:: Regular rate and rhythm
Respiratory:: Bilateral: Rales
Lung Excursion:: Normal
Abdomen:: Nontender and Soft
Bowel Sounds:: Normal
Extremity Edema:: +1: Bilateral:
--- NOTE | 2024-07-02 15:29 | CM ---
Patient chart reviewed
Home 02 assessment re-ordered today
Referral [facility] for [facility]
PLAN: Discharge when stable, home with [facility]
[2024-07-02 15:34] VITALS: BP 152/54
--- NOTE | 2024-07-02 16:36 | W.PN.UPDATE ---
Update Note
Progress Note Update
patient is in need of oxygen at 2L nasal canula continuously due to pulse ox of 85% on room air at rest. oxygen will improve hypoxemia. Cathleen is mobile within the home. Duoneb therapy has been tried and is ineffective in treating hypoxemia-related
symptoms. oxygen is needed to improve symptoms
[2024-07-02] MEDS: DESENEX/MITRAZOL/ZEASORB 1 APPLIC TOPICAL (17:10)
[2024-07-02] MEDS: CELLCEPT 500 MG PO (17:10)
[2024-07-02 23:21] VITALS: BP 152/53
--- NOTE | 2024-07-03 02:27 | DOWNTIME ---
There was a [employer] Client Duct[employer]ing Plumber Downtime on 07/03/2024 from 0100 to 07/03/2023 at 0205 . Downtime documentation of patient's care, including medication administrations, has been reconciled in the electronic record per guidelines. Refer to the
patient's paper chart under the miscellaneous tab to see printed paper medication records and downtime forms.
[2024-07-03 05:30] VITALS: BMI 26.2
--- NOTE | 2024-07-03 07:06 | W.PN.HOSP.TC ---
Today's Communication/Plan
-
Lasix transitioned to PO as per nephro
cont tamiflu (last day)
likely discharge tomorrow if remains stable/continues to improve
Assessment / Plan
Assessment / Plan
Physical Exam
General: No acute distress appears comfortable at this time.
HEENT: NormoCephalic, Anicteric, Moist mucous membranes and Atraumatic
Respiratory: clear to auscultation on nasal cannula supplementation non-labored respiration
Cardiac: S1/S2 NSR
GI: Soft, Non Tender, Non Distended and Normal Bowel Sounds
Musculoskeletal: No Clubbing, No Cyanosis and No Edema
Skin: Warm
Neuro: AO x 3
Psych: Calm
83F ILD HFpEF here for Flu acute on chronic HFpEF w/ associate hyponatremia
#Acute Hypoxic respiratory distress/failure - Influenza A positive
#ILD
- IMU
- wean O2 supplementation as tolerated
- neg procal, no need for abx at this time
- Tamiflu last day 07/03/24
- iv solu-medrol 40 q 12 for presumed ILD exacerbation, tapered to Prednisone as per Pulm
-cont home ICS
-cont home mycophenolate
- pulmonary consult appreciated
patient is in need of oxygen at 2L nasal canula continuously due to pulse ox of 85% on room air at rest. oxygen will improve hypoxemia. Cathleen is mobile within the home. Duoneb therapy has been tried and is ineffective in treating hypoxemia-related
symptoms. oxygen is needed to improve symptoms
# HFpEF - EF 55% several years ago with PASP of 44. No known valvular disease at the time. Now has weight gain, peripheral edema and more interstitial markings w/ shaila-bronchial cuffing concerning for pulm edema versus worsening pulm htn. BNP >
7000.
- IV lasix 40mg q12 transitioned to PO 40 mg Q12H as per nephro
- hold home spironolactone 12.5 daily as per Nephro
- cardiology consult appreciated
- ECHO appreciated EF 60-65% TR worsened from mild to mod and PA pressures increased from 40-45 mmHg to 64 mmHg
# Hyponatremia possibly acute on chronic with possible SIADH contributing
# Hyponatremia - Na down to 126, usually around 130. 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
- Fluid restriction diuretics as above
- monitor Na
- nephrology consult appreciated hold home spironolactone, jelenaa 06/30/24
-Hyponatremia since improved/resolved
#Chronic Anemia
#Mild Iron Def Anemia
monitor H&H stable
no need for transfusion at this time
PO iron supplementation started, cont
PT/OT appreciated Home Health
DVT PPX - heparin sq
Code status - Do not intubate
Discussed with patient and patient's Tip
I spent a total of 35 minutes with the patient or on the floor. More than 50% of this time involved counseling and coordination of care.
Anticipated Discharge: Within 24 hours
Subjective/Interval History
-
Date of Service: July 03, 2024
Reports feeling well. Denies new acute issues. Remains on low dose oxygen supplementation. Tip present during evaluation.
Objective Data
-
Labs:
Laboratory Results
07/03/24
06:00
WBC Pending
Hgb Pending
Hct Pending
Plt Count Pending
Sodium Pending
Potassium Pending
Chloride Pending
Carbon Dioxide Pending
BUN Pending
Creatinine Pending
Glucose Pending
Calcium Pending
Vital Signs:
Vital Signs
Temp Pulse Resp BP Pulse Ox
97.8 F 76 16 152/53 97
07/02/24 23:21 07/02/24 23:21 07/02/24 23:21 07/02/24 23:21 07/02/24 23:21
I&O
07/02/24 07/03/2425
06:59 06:59 06:59
Intake Total 1260 / 1260 1080 / 1080
Output Total 1250 / 1250
Balance 1080 / 1080
[2024-07-03] MEDS: TAMIFLU 75 MG PO ×2 (07:46→19:49)
[2024-07-03] MEDS: DELTASONE 50 MG PO (07:46)
[2024-07-03] MEDS: FEOSOL 325 MG PO (07:47)
[2024-07-03] MEDS: LASIX 40 MG IV ×2 (07:47→16:02)
[2024-07-03] MEDS: VENTOLIN NEBULES 2.5 MG INH ×4 (07:56→19:39)
[2024-07-03] MEDS: PULMICORT 0.5 MG INH ×2 (07:56→19:39)
[2024-07-03 07:57] VITALS: BP 143/53
[2024-07-03 07:59] LABS: Hematocrit 29.6 % (37.0-47.0); Hemoglobin 10.1 g/dL (12.0-16.0); Mean Corp Hgb Conc. 34.1 g/dL (33.0-37.0); Mean Corpuscular Volume 85.1 fL (81.0-99.0); Mean Platelet Volume 10.7 fL (7.4-10.4); Platelet Count 451 10^3/uL (130-400); Red Blood Cell Count 3.48 10^6/uL (4.20-5.40); Red Cell Dist. Width 18.1 % (11.5-14.5)
[2024-07-03 08:20] LABS: Blood Urea Nitrogen 39 mg/dl (7-17); Calcium 9.8 mg/dl (8.4-10.2); Chloride 88 mmol/L (98-107); Estimated Creatinine Clearance 50 ml/min; Glucose 77 mg/dl (70-99); Magnesium 2.3 mg/dl (1.6-2.3); Phosphorus 3.9 mg/dl (2.5-4.5); Potassium 3.7 mmol/L (3.5-5.1); Sodium 136 mmol/L (135-145); eGFR > 60.00
--- NOTE | 2024-07-03 08:24 | VNURNOTE ---
Chart reviewed. New home 02 Rx faxed to Elenita at [facility].
[2024-07-03 08:29] LABS: Carbon Dioxide 36 mmol/L (22-30)
[2024-07-03] MEDS: HEPARIN 5000 UNITS SC ×2 (09:31→16:02)
[2024-07-03] MEDS: DESENEX/MITRAZOL/ZEASORB TOPICAL (09:34)
--- NOTE | 2024-07-03 11:23 | W.PN.CARDCBS ---
Today's Communication / Plan
-
Sign off and arrange outpatient follow-up
Impression / Plan
-
PCP: Aiden Hopkins
Primary bicycle inspector: Luis M Berger
Impression:
Acute hypoxic respiratory distress
Influenza A positive
Acute heart failure preserved EF
Interstitial lung disease
Chronic lower extremity edema
Hyponatremia
Anemia
Echo 07/01/2024: EF 60 to 65%. Normal regional wall motion and LV size and function. Mild MR. Moderate TR with PAP 64 mmHg.
Echo 02/27/2024: Normal LV size, wall thickness, systolic function, EF 55 to 60%, no wall motion abnormalities, normal RV size and function, mild TR, PA P 40 to 45 mmHg
Echocardiogram 07/01/2024: Ejection fraction 60 to 65%, mild MR, moderate TR PA systolic of 64 mmHg
Assessment and plan:
Appears stable from cardiology viewpoint
Nephrology is managing diuretics and controlling volume status given hyponatremia
Pulmonary is treating flu and interstitial lung disease
Echocardiogram is relatively stable
Will arrange outpatient follow-up and sign off
HPI 06/29/24:
83-year-old female with history of hypertension, interstitial lung disease, chronic lower extremity edema, normal LV function, with recent 8 pound weight gain over 2 months, increasing shortness of breath and lower extremity edema over the past
week. Outpatient diuretics adjusted and uptitrated with no improvement in symptoms. Presented to ED 06/28/2024 and influenza A positive. proBNP elevated at 7300. Chest x-ray concerning for pneumonia cannot exclude pulmonary edema.
COVID-negative.
Progress Note - Registered Nurse Bone Marrow Transplant
Subjective
Date of Service: July 03, 2024
No complaints.
Objective
Labs:
07/03/24 07:45
07/03/24 07:45
Labs
Hgb 10.1 g/dL (12.0-16.0) L 07/03/24 07:45
Hct 29.6 % (37.0-47.0) L 07/03/24 07:45
Plt Count 451 10^3/uL (130-400) H 07/03/24 07:45
Sodium 136 mmol/L (135-145) 07/03/24 07:45
Potassium 3.7 mmol/L (3.5-5.1) 07/03/24 07:45
BUN 39 mg/dl (7-17) H 07/03/24 07:45
Creatinine 0.7 mg/dL (0.6-1.0) 07/03/24 07:45
Glucose 77 mg/dl (70-99) 07/03/24 07:45
Vital Signs and I&O:
Vital Signs
Temp Pulse Resp BP Pulse Ox
98.0 F 78 14 143/53 86
07/03/24 07:57 07/03/24 11:02 07/03/24 11:02 07/03/24 07:57 07/03/24 08:24
Vital Signs
Temp Pulse Resp BP Pulse Ox
98.0 F 78 14 143/53 86
07/03/24 07:57 07/03/24 11:02 07/03/24 11:02 07/03/24 07:57 07/03/24 08:24
Intake & Output
07/01/24 07/02/24 07/03/24 07/04/24
06:59 06:59 06:59 06:59
Intake Total 960 / 960 1260 / 1260 1080 / 1080
Output Total 1800 / 1800 1250 / 1250
Balance -840 / -840 1080 / 1080
Physical Exam
Physical Exam
General: Well developed, well nourished in NAD.
Neck: Supple, no JVD, HJR, carotids +2 B/L, no bruits bilaterally.
Heart: Non displaced PMI, RRR, no murmurs, No S3, S4, no rubs.
Lungs: Scattered rhonchi
Extremities: No clubbing, cyanosis or edema bilaterally.
Neuro: Grossly nonfocal, awake, alert and oriented x3.
[2024-07-03] MEDS: THERAGRAN 1 TABLET PO (12:21)
[2024-07-03] MEDS: OSCAL CAL 500 500 MG PO (12:21)
--- NOTE | 2024-07-03 12:42 | CM ---
CM reviewed chart, patient seen beside with spouse, O2 delivered by [employer]. IMM verbally reviewed, provided with copy, placed in chart. Per Hospitalist, plan for discharge tomorrow. Update to [facility]. CM will continue to follow for all discharge
planning needs.
Plan; home with [facility] and spouse when stable, new O2 ([employer]).
[2024-07-03 15:14] VITALS: BP 137/48
--- NOTE | 2024-07-03 15:24 | W.PN.NEPH.PH ---
Today's Communication / Plan
-
change Lasix to 40 mg PO twice a day and signed off
Assessment/Plan
-
83-year-old female was a past medical history of interstitial lung disease not currently on home O2, history of CHF with preserved EF presents to the emergency department with worsening shortness of breath over the last 6 days.
renal consul was place for hyponatremia of 126 on admission it decreased down to 123.
Patient diagnosed with influenza.
Of note she was on hydrochlorothiazide until Monday of this week one was changed to Aldactone.
Medical nurse did a bladder scan showed over 700.
Impression.
Acute hyponatremia.
Influenza/pneumonia.
Interstitial lung disease.
Urinary retention.
Hypertension.
CHF.
Plan.
Follow BMP
Maintain fluid restriction until influenza has resolved
Change IV Lasix to PO 40 mg twice daily.
Sodium is 136.
I will sign off a please call if needed
-
-
Date of Service: July 03, 2024
CC / HPI / ROS
-
Chief Complaint:
shortness of breath
History of Present Illness:
Sodium up to 136 with Samsca 06/30
BP stable
On Tamiflu for influenza
Review of Systems:
no chest pain or shortness of breath
Labs
-
Labs:
WBC 9.0 10^3/uL (4.8-10.8) 07/03/24 07:45
RBC 3.48 10^6/uL (4.20-5.40) L 07/03/24 07:45
Hgb 10.1 g/dL (12.0-16.0) L 07/03/24 07:45
Hct 29.6 % (37.0-47.0) L 07/03/24 07:45
Plt Count 451 10^3/uL (130-400) H 07/03/24 07:45
Sodium 136 mmol/L (135-145) 07/03/24 07:45
Potassium 3.7 mmol/L (3.5-5.1) 07/03/24 07:45
Chloride 88 mmol/L (98-107) L 07/03/24 07:45
Carbon Dioxide 36 mmol/L (22-30) H 07/03/24 07:45
BUN 39 mg/dl (7-17) H 07/03/24 07:45
Creatinine 0.7 mg/dL (0.6-1.0) 07/03/24 07:45
eGFR > 60.00 07/03/24 07:45
Glucose 77 mg/dl (70-99) 07/03/24 07:45
Calcium 9.8 mg/dl (8.4-10.2) 07/03/24 07:45
Phosphorus 3.9 mg/dl (2.5-4.5) 07/03/24 07:45
Jhr-K-Xdhfeoierrg Pept 7340 pg/ml 06/29/24 04:55
Albumin 4.1 g/dl (3.5-5.0) 06/29/24 05:57
Physical Exam
-
Vital Signs:
Vital Signs
Temp Pulse Resp BP Pulse Ox
97.8 F 81 18 137/48 95
07/03/24 15:14 07/03/24 15:14 07/03/24 15:14 07/03/24 15:14 07/03/24 15:14
Cardiovascular:: Regular rate and rhythm
Respiratory:: Bilateral: CTA
Lung Excursion:: Normal
Abdomen:: Nontender and Soft
Bowel Sounds:: Normal
Extremity Edema:: +1: Bilateral:
[2024-07-03] MEDS: CELLCEPT 500 MG PO (18:17)
[2024-07-03] MEDS: DESENEX/MITRAZOL/ZEASORB 1 APPLIC TOPICAL (20:04)
[2024-07-03 23:03] VITALS: BP 165/51
[2024-07-04] MEDS: HEPARIN 5000 UNITS SC ×2 (00:38→09:18)
[2024-07-04 06:00] VITALS: BMI 25.8
[2024-07-04] MEDS: DESENEX/MITRAZOL/ZEASORB 1 APPLIC TOPICAL (06:42)
[2024-07-04 07:00] VITALS: BP 163/60
--- NOTE | 2024-07-04 07:26 | W.PN.HOSP.TC ---
Today's Communication/Plan
-
discharge
Assessment / Plan
Assessment / Plan
Physical Exam
General: No acute distress appears comfortable at this time.
HEENT: NormoCephalic, Anicteric, Moist mucous membranes and Atraumatic
Respiratory: clear to auscultation on nasal cannula supplementation non-labored respiration
Cardiac: S1/S2 NSR
GI: Soft, Non Tender, Non Distended and Normal Bowel Sounds
Musculoskeletal: No Clubbing, No Cyanosis and No Edema
Skin: Warm
Neuro: AO x 3
Psych: Calm
83F ILD HFpEF here for Flu acute on chronic HFpEF w/ associate hyponatremia
#Acute Hypoxic respiratory distress/failure - Influenza A positive
#ILD
- IMU
- wean O2 supplementation as tolerated
- neg procal, no need for abx at this time
- Tamiflu completed
- iv solu-medrol 40 q 12 for presumed ILD exacerbation, tapered to Prednisone, to continue on discharge with dose reduction by 10 mg after every 3rd dose till complete
-cont home ICS
-cont home mycophenolate
- pulmonary consult appreciated
patient is in need of oxygen at 2L nasal canula continuously due to pulse ox of 85% on room air at rest. oxygen will improve hypoxemia. Cathleen is mobile within the home. Duoneb therapy has been tried and is ineffective in treating hypoxemia-related
symptoms. oxygen is needed to improve symptoms
# HFpEF - EF 55% several years ago with PASP of 44. No known valvular disease at the time. Now has weight gain, peripheral edema and more interstitial markings w/ shaila-bronchial cuffing concerning for pulm edema versus worsening pulm htn. BNP >
7000.
- IV lasix 40mg q12 transitioned to PO 40 mg Q12H as per nephro
- cont hold home spironolactone 12.5 daily as per Nephro, outpt follow up with cardiology and/or primary care provider to determine when safe to resume, if necessary to resume, and/or if an alternative agent is required instead.
- cardiology consult appreciated
- ECHO appreciated EF 60-65% TR worsened from mild to mod and PA pressures increased from 40-45 mmHg to 64 mmHg
# Hyponatremia possibly acute on chronic with possible SIADH contributing
# Hyponatremia - Na down to 126, usually around 130. 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
- Fluid restriction diuretics as above
- monitor Na
- nephrology consult appreciated hold home spironolactone, samsca 06/30/24
-Hyponatremia since improved/resolved
#Chronic Anemia
#Mild Iron Def Anemia
monitor H&H stable
no need for transfusion at this time
PO iron supplementation started, cont
outpt repeat iron studies in 1 month with primary care provider recommended
PT/OT appreciated Home Health
DVT PPX - heparin sq
Code status - Do not intubate
Medically stable for discharge home with home services and outpatient follow up recommendations.
Total Time Preparing Discharge __40 minutes including examination of the patient, summary of the hospital stay, instructions for continuing care to all relevant caregivers; and preparation of discharge records, prescriptions, and referral
forms if necessary.
Anticipated Discharge: Today
Subjective/Interval History
-
Date of Service: July 04, 2024
No acute distress. Sitting up comfortably in chair. Denies new acute issues at this time. Eager to go home.
Objective Data
-
Vital Signs:
Vital Signs
Temp Pulse Resp BP Pulse Ox
98.1 F 74 18 165/51 98
07/03/24 23:03 07/03/24 23:03 07/03/24 23:03 07/03/24 23:03 07/04/24 00:17
I&O
07/03/24 07/04/24 07/05/24
06:59 06:59 06:59
Intake Total 6940 / 1080 960 / 960
Balance 1080 / 1080 960 / 960
[2024-07-04] MEDS: PULMICORT 0.5 MG INH (07:32)
[2024-07-04] MEDS: VENTOLIN NEBULES 2.5 MG INH ×2 (07:32→11:16)
[2024-07-04] MEDS: LASIX 40 MG IV (09:18)
[2024-07-04] MEDS: DELTASONE 50 MG PO (09:18)
[2024-07-04] MEDS: FEOSOL 325 MG PO (09:18)
[2024-07-04] MEDS: PROTONIX 40 MG PO (09:18)
[2024-07-04] MEDS: THERAGRAN 1 TABLET PO (12:01)
[2024-07-04] MEDS: OSCAL CAL 500 500 MG PO (12:01)
--- NOTE | 2024-07-04 13:13 | W.DCSUMMARY ---
Discharge Summary
Discharge Data
Date of Admission: 06/29/24
Date of Discharge: 07/04/24
-
Pending Results: No
Discharge Plan
-
Patient Disposition: Home with Home Care
Discharge Diagnosis/Procedures: Acute Hypoxic respiratory distress/failure - Influenza A positive
Currently requiring 2L Oxygen supplementation for hypoxia
Interstitial Lung Disease
Acute on Chronic Heart Failure with Preserved Ejection Fraction
Hyponatremia resolved
Chronic Anemia
Mild Iron Def Anemia
Condition: Fair
Diet: Restrict fluids to 48 oz
Activity: As tolerated
Driving Restrictions: Not until seen by your Dr
Bathing Restrictions: None
Blood Work: Please repeat CBC and BMP with primary care provider in 1 week of discharge.
Please repeat Iron studies with primary care provider in 1 month of discharge.
Others Tests: Repeat Chest X-ray with primary care provider in 1 month of discharge.
Other Services: PT and OT
Specialty Instructions: Weigh Daily- Call MD for wt gain/loss 3 lbs overnight/5 lbs in 1 week
Activity Restrictions/Additional Instructions:
Please follow up with primary care provider in 1 week of discharge and keep your appointments with Pulmonology and Cardiology.
Iron supplementation prescribed for mild iron deficiency anemia. To be taken every other day. This is available over the counter.
Home Lasix has been increased to 40 mg twice a day for better control Heart Failure.
Prednisone taper prescribed for Interstitial Lung Disease exacerbation:
40 mg daily x3 days, then 30 mg daily x3 days, then 20 mg daily x3 days, then 10 mg daily x3 days, then stop.
Protonix has been prescribed for GI stress ulcer prophylaxis while on prednisone, ok to discontinue when prednisone taper completes.
Spironolactone remains on hold due to hyponatremia (since resolved), follow up with Cardiology and/or primary care provider to determine when safe to resume, if necessary to resume, and/or if an alternative agent is required instead.
Please take medications as prescribed/recommended and follow up with primary care provider and/or other healthcare provider involved in your care for refills and/or further adjustment to your medication regimen as necessary.
Instructions: *[facility] Heart Failure Instructions
Referrals:
Wendy Zhang PA-C [Specified Professional Personl] - 07/12/24 11:00 am (You have a cardiology follow-up appointment at the [place] office with Dr. Frederick's physician assistant women's basketball coach, Wendy. Please call with questions)
Deepika Connelly CRNP [Non-Admitting Privileges] - 07/10/24 10:30 am
Aiden Hopkins PA-C [Family Provider] - in one week
Prescriptions:
New
ferrous sulfate [FeroSul] 325 mg (65 mg iron) Tablet
325 mg PO Q48H Qty: 14 0RF
furosemide [Lasix] 40 mg tablet
40 mg PO BID Qty: 60 0RF
pantoprazole 40 mg Tablet,Delayed Release (Dr/Ec)
40 mg PO DAILY Qty: 12 0RF
Rx Instructions:
ok to discontinue when prednisone taper finishes.
prednisone 10 mg Tablet
See Rx Instructions .ROUTE .COMPLEX Qty: 30 0RF
Rx Instructions:
Take By Mouth:
40 mg daily x3 days, 30 mg daily x3 days,
20 mg daily x3 days, 10 mg daily x3 days.
Continued
cholecalciferol (vitamin D3) 1,000 UNITS tablet
1,000 units PO NOON
albuterol sulfate 1 PUFF HFA aerosol inhaler
1 puff inhalation R Q4HPRN PRN (Reason: sob) 30 Days Qty: 1 0RF
alendronate 70 mg Tablet
70 mg PO FR
therapeutic multivitamin Tablet
1 tab PO NOON
mycophenolate mofetil 500 mg Tablet
500 mg PO DAILY@1900
calcium carbonate [Calcium 600] 600 mg calcium (1,500 mg) Tablet
600 mg PO NOON
budesonide 0.5 mg/2 mL Suspension For Nebulization
0.5 mg INHALATION R BID
Held
spironolactone 25 mg Tablet
12.5 mg PO DAILY
Hold Instructions: Follow up with Cardiology and/or primary care provider to determine when safe to resume, if necessary to resume, and/or if an alternative agent is required instead.
Discontinued
prednisone 10 mg Tablet
20 mg PO DAILY
Patient Comments:
06/29/24: to take 20mg QD for 7 days then 10mg QD for 7 days, took 60mg on Monday
furosemide 20 mg Tablet
20 mg PO DAILY
Discharge Orders:
Discharge Patient (As Directed); Ordered 07/04/24
Ordered By: Jen Rojas
Discharge Date and Time
Print Language: MOHAWK
--- NOTE | 2024-07-04 13:25 | CM ---
CM reviewed chart, patient for discharge home today with [facility], O2 provided by [employer]. CM will continue to follow for all discharge planning needs.
Plan; home with [facility] and spouse when stable, new O2 ([employer]).
--- NOTE | 2024-07-04 13:46 | PTCARENOTE ---
Reviewed discharge paperwork with Pt and . discussed new oxygen tank - questions answered. Called for transport, IV removed. Discharged to home.
== END 2024-07-04 14:31 | disposition home health service (06) | DRG 193 ==
LOC: 4 WEST ACU 06:45
PROVIDERS: Nurse Practitioner Family; ADMITTING PHYSICIAN Internal Medicine; ATTENDING PHYSICIAN Internal Medicine; CONSULT PHYSICIAN Internal Medicine Nephrology; EMERGENCY PHYSICIAN Emergency Medicine; FAMILY PHYSICIAN Physician Assistant Medical; OTHER PHYSICIAN Internal Medicine Cardiovascular Disease; OTHER PHYSICIAN Internal Medicine Critical Care Medicine
PROC: 5A09357 Assistance with Respiratory Ventilation, Less than 24 Consecutive Hours, Continuous Positive Airway Pressure (ICD-10-PCS; 2024-06-29)
DX: J10.00 Influenza due to other identified influenza virus with unspecified type of pneumonia (principal); I50.33 Acute on chronic diastolic (congestive) heart failure; J96.01 Acute respiratory failure with hypoxia; J84.9 Interstitial pulmonary disease, unspecified; E22.2 Syndrome of inappropriate secretion of antidiuretic hormone; J10.1 Influenza due to other identified influenza virus with other respiratory manifestations; I11.0 Hypertensive heart disease with heart failure; D50.9 Iron deficiency anemia, unspecified; Z79.83 Long term (current) use of bisphosphonates; K57.30 Diverticulosis of large intestine without perforation or abscess without bleeding; Z90.49 Acquired absence of other specified parts of digestive tract; Z90.710 Acquired absence of both cervix and uterus; Z87.891 Personal history of nicotine dependence; Z88.6 Allergy status to analgesic agent; Z88.1 Allergy status to other antibiotic agents; I08.1 Rheumatic disorders of both mitral and tricuspid valves; K21.9 Gastro-esophageal reflux disease without esophagitis; Z87.01 Personal history of pneumonia (recurrent); J42 Unspecified chronic bronchitis; I27.20 Pulmonary hypertension, unspecified; E87.8 Other disorders of electrolyte and fluid balance, not elsewhere classified; D75.839 Thrombocytosis, unspecified; Z79.51 Long term (current) use of inhaled steroids; Z79.624 Long term (current) use of inhibitors of nucleotide synthesis; Z79.899 Other long term (current) drug therapy; Z11.52 Encounter for screening for COVID-19
CPT/HCPCS: 71045; 80048; 80053; 81003; 82607; 82728; 82746; 83540; 83550; 83735; 83880; 83935; 84100; 84145; 84300; 84484; 85014; 85018; 85025; 85027; 87502; 87811; 93005; 93306; 94640; 96374; 96375; 97116; 97163; 97167; 99291

== ENCOUNTER → 2024-07-16 09:55 | Outpatient (REF) | payer OTHER, SELFPAY ==
[2024-07-16 14:56] LABS: % Basophils 1.6 % (0-2); % Eosinophils 3.1 % (0-6); % Immature Granulocytes 0.8 % (0-0.5); % Neutrophils 62.5 % (42.2-75.2); Absolute Basophils 0.1 10^3/uL (0-0.2); Absolute Eosinophils 0.3 10^3/uL (0-0.7); Absolute Immature Granulocytes 0.1 10^3/uL (0-0.05); Absolute Lymphocytes 1.9 10^3/uL (1.2-3.4); Absolute Neutrophils 5.6 10^3/uL (1.4-6.5); Hematocrit 32.8 % (37.0-47.0); Hemoglobin 10.6 g/dL (12.0-16.0); Mean Corp Hgb Conc. 32.3 g/dL (33.0-37.0); Mean Corpuscular Hgb 28.6 pg (27.0-31.0); Mean Corpuscular Volume 88.4 fL (81.0-99.0); Mean Platelet Volume 12.8 fL (7.4-10.4); Nucleated Red Blood Cells % 0 %; Platelet Count 413 10^3/uL (130-400); Red Blood Cell Count 3.71 10^6/uL (4.20-5.40); Red Cell Dist. Width 19.9 % (11.5-14.5)
[2024-07-16 15:11] LABS: ALT (SGPT) 20 U/L (0-35); AST (SGOT) 23 U/L (14-36); Albumin 4.3 g/dl (3.5-5.0); Alkaline Phosphatase 93 U/L (38-126); Blood Urea Nitrogen 31 mg/dl (7-17); Calcium 9.4 mg/dl (8.4-10.2); Carbon Dioxide 36 mmol/L (22-30); Chloride 88 mmol/L (98-107); Glucose 94 mg/dl (70-99); Iron 126 ug/dl (37-170); Potassium 3.3 mmol/L (3.5-5.1); Sodium 127 mmol/L (135-145); Total Bilirubin 1.3 mg/dl (0.2-1.3); Total Protein 6.8 g/dl (6.3-8.2); eGFR > 60.00
[2024-07-16 15:20] LABS: Percent Saturation 48 % (20-50); Total Iron Binding Capacity 259 ug/dl (265-497)
== END ==
LOC: HWLAB 09:55
PROVIDERS: ATTENDING PHYSICIAN Physician Assistant Medical; FAMILY PHYSICIAN Physician Assistant Medical; OTHER PHYSICIAN Internal Medicine Critical Care Medicine; REFERRING PHYSICIAN Internal Medicine Cardiovascular Disease
DX: I50.9 Heart failure, unspecified (principal); E87.1 Hypo-osmolality and hyponatremia; I10 Essential (primary) hypertension; D64.9 Anemia, unspecified; I50.32 Chronic diastolic (congestive) heart failure
CPT/HCPCS: 36415; 80053; 82728; 83540; 83550; 85025

== ENCOUNTER → 2024-07-31 09:54 | Outpatient (REF) | payer OTHER, SELFPAY ==
[2024-07-31 11:54] LABS: % Basophils 1.7 % (0-2); % Eosinophils 2.8 % (0-6); % Immature Granulocytes 0.9 % (0-0.5); % Lymphocytes 26.5 % (20.5-51.1); % Monocytes 13.8 % (1.7-9.3); % Neutrophils 54.3 % (42.2-75.2); Absolute Basophils 0.1 10^3/uL (0-0.2); Absolute Eosinophils 0.1 10^3/uL (0-0.7); Absolute Lymphocytes 1.2 10^3/uL (1.2-3.4); Absolute Monocytes 0.6 10^3/uL (0.1-0.6); Absolute Neutrophils 2.5 10^3/uL (1.4-6.5); Hematocrit 31.9 % (37.0-47.0); Hemoglobin 10.4 g/dL (12.0-16.0); Mean Corp Hgb Conc. 32.6 g/dL (33.0-37.0); Mean Corpuscular Hgb 29.8 pg (27.0-31.0); Mean Corpuscular Volume 91.4 fL (81.0-99.0); Mean Platelet Volume 11.7 fL (7.4-10.4); Nucleated Red Blood Cells % 0 %; Platelet Count 385 10^3/uL (130-400); Red Blood Cell Count 3.49 10^6/uL (4.20-5.40); Red Cell Dist. Width 19.9 % (11.5-14.5); White Blood Cell Count 4.7 10^3/uL (4.8-10.8)
[2024-07-31 12:38] LABS: Blood Urea Nitrogen 22 mg/dl (7-17); Calcium 9.4 mg/dl (8.4-10.2); Carbon Dioxide 27 mmol/L (22-30); Chloride 99 mmol/L (98-107); Glucose 90 mg/dl (70-99); Iron 143 ug/dl (37-170); Sodium 132 mmol/L (135-145); eGFR > 60.00
[2024-07-31 12:47] LABS: Percent Saturation 43 % (20-50); Total Iron Binding Capacity 329 ug/dl (265-497)
[2024-07-31 12:56] LABS: Potassium 4.2 mmol/L (3.5-5.1)
[2024-07-31 13:46] LABS: Urine Sodium < 5 mmol/L (30-90)
== END ==
LOC: HWLAB 09:54
PROVIDERS: ATTENDING PHYSICIAN Physician Assistant Medical; FAMILY PHYSICIAN Physician Assistant Medical
DX: I27.20 Pulmonary hypertension, unspecified (principal); E87.6 Hypokalemia; I10 Essential (primary) hypertension; I50.32 Chronic diastolic (congestive) heart failure; E87.1 Hypo-osmolality and hyponatremia; D64.9 Anemia, unspecified
CPT/HCPCS: 36415; 80048; 82728; 83540; 83550; 84300; 85025

== ENCOUNTER → 2024-08-09 09:33 | Outpatient (REF) | payer OTHER, SELFPAY ==
[2024-08-09 12:00] LABS: % Eosinophils 2.8 % (0-6); % Immature Granulocytes 0.7 % (0-0.5); % Lymphocytes 21.8 % (20.5-51.1); % Monocytes 13.7 % (1.7-9.3); Absolute Basophils 0.1 10^3/uL (0-0.2); Absolute Eosinophils 0.2 10^3/uL (0-0.7); Absolute Lymphocytes 1.2 10^3/uL (1.2-3.4); Absolute Monocytes 0.8 10^3/uL (0.1-0.6); Absolute Neutrophils 3.3 10^3/uL (1.4-6.5); Hematocrit 31.2 % (37.0-47.0); Mean Corp Hgb Conc. 32.1 g/dL (33.0-37.0); Mean Corpuscular Hgb 29.1 pg (27.0-31.0); Mean Corpuscular Volume 90.7 fL (81.0-99.0); Nucleated Red Blood Cells % 0 %; Platelet Count 437 10^3/uL (130-400); Red Blood Cell Count 3.44 10^6/uL (4.20-5.40); Red Cell Dist. Width 20.2 % (11.5-14.5); White Blood Cell Count 5.6 10^3/uL (4.8-10.8)
[2024-08-09 12:12] LABS: Iron 108 ug/dl (37-170)
[2024-08-09 12:23] LABS: Percent Saturation 33 % (20-50); Total Iron Binding Capacity 322 ug/dl (265-497)
== END ==
LOC: HWRAD 09:33
PROVIDERS: ATTENDING PHYSICIAN Nurse Practitioner Family; FAMILY PHYSICIAN Physician Assistant Medical
DX: Z87.01 Personal history of pneumonia (recurrent) (principal); D64.9 Anemia, unspecified
CPT/HCPCS: 36415; 71046; 82728; 83540; 83550; 85025

== ENCOUNTER → 2024-08-23 09:23 | Outpatient (REF) | payer OTHER, SELFPAY ==
[2024-08-23 13:26] LABS: Osmolality Serum 290 mOsm/kg (275-300)
[2024-08-23 13:35] LABS: Blood Urea Nitrogen 23 mg/dl (7-17); Calcium 10.1 mg/dl (8.4-10.2); Carbon Dioxide 27 mmol/L (22-30); Chloride 99 mmol/L (98-107); Glucose 86 mg/dl (70-99); Potassium 4.7 mmol/L (3.5-5.1); Sodium 135 mmol/L (135-145); eGFR > 60.00
[2024-08-23 14:19] LABS: Osmolality Urine 591 mOsm/kg (300-900)
[2024-08-23 14:27] LABS: Urine Sodium 23 mmol/L (30-90)
== END ==
LOC: HWLAB 09:23
PROVIDERS: ATTENDING PHYSICIAN Physician Assistant Medical
DX: E87.1 Hypo-osmolality and hyponatremia (principal)
CPT/HCPCS: 36415; 80048; 83930; 83935; 84300

== ENCOUNTER → 2025-01-14 09:21 | Outpatient (REF) | payer OTHER, SELFPAY ==
[2025-01-14 12:57] LABS: Blood Urea Nitrogen 21 mg/dl (7-17); Calcium 10.1 mg/dl (8.4-10.2); Carbon Dioxide 30 mmol/L (22-30); Chloride 102 mmol/L (98-107); Glucose 102 mg/dl (70-99); Potassium 4.3 mmol/L (3.5-5.1); Sodium 138 mmol/L (135-145); eGFR > 60.00
== END ==
LOC: HWLAB 09:21
PROVIDERS: ATTENDING PHYSICIAN Internal Medicine Cardiovascular Disease; FAMILY PHYSICIAN Physician Assistant Medical
DX: I50.32 Chronic diastolic (congestive) heart failure (principal)
CPT/HCPCS: 36415; 80048

== ENCOUNTER → 2025-03-05 09:36 | Outpatient (REF) | payer OTHER, SELFPAY ==
[2025-03-05 12:55] LABS: Hematocrit 35.3 % (37.0-47.0); Hemoglobin 11.1 g/dL (12.0-16.0); Mean Corp Hgb Conc. 31.4 g/dL (33.0-37.0); Mean Corpuscular Volume 86.5 fL (81.0-99.0); Nucleated Red Blood Cells % 0 %; Platelet Count 432 10^3/uL (130-400); Red Cell Dist. Width 18.3 % (11.5-14.5)
[2025-03-05 15:32] LABS: ALT (SGPT) 14 U/L (0-35); AST (SGOT) 22 U/L (14-36); Albumin 4.2 g/dl (3.5-5.0); Alkaline Phosphatase 72 U/L (38-126); Blood Urea Nitrogen 20 mg/dl (7-17); Calcium 10.2 mg/dl (8.4-10.2); Carbon Dioxide 29 mmol/L (22-30); Chloride 102 mmol/L (98-107); Glucose 86 mg/dl (70-99); HDL Cholesterol 105 mg/dl; LDL Cholesterol, Calculated 66 mg/dl; Potassium 4.6 mmol/L (3.5-5.1); Sodium 135 mmol/L (135-145); Total Protein 6.9 g/dl (6.3-8.2); Very Low Density Lipoprotein 14 mg/dl (0-30); eGFR > 60.00
[2025-03-05 15:45] LABS: Vitamin D, 25-OH*** 40.7 ng/mL (30-80)
[2025-03-05 16:34] LABS: Folate > 20.0 ng/ml (2.76-20); Vitamin B12 665 pg/ml (239-931)
== END ==
LOC: HWLAB 09:36
PROVIDERS: ATTENDING PHYSICIAN Physician Assistant Medical; REFERRING PHYSICIAN Internal Medicine Critical Care Medicine
DX: I10 Essential (primary) hypertension (principal); I50.9 Heart failure, unspecified; D64.9 Anemia, unspecified; E78.2 Mixed hyperlipidemia; M81.0 Age-related osteoporosis without current pathological fracture; E53.8 Deficiency of other specified B group vitamins; Z68.23 Body mass index [BMI] 23.0-23.9, adult
CPT/HCPCS: 36415; 80053; 80061; 82306; 82607; 82746; 84443; 85025

== ENCOUNTER → 2025-04-23 10:37 | Outpatient (REF) | payer OTHER, SELFPAY | LOC: HWRAD 10:37 | PROVIDERS: ATTENDING PHYSICIAN Physician Assistant Medical | DX: M81.0 Age-related osteoporosis without current pathological fracture (principal) | CPT/HCPCS: 77080 ==